=== PATIENT | female | born 1945 | race Caucasian/White ===

== ENCOUNTER 2017-10-04 16:57 | Inpatient (IN) | payer MEDICARE ==
[2017-10-04] MEDS ORDERED: Acetaminophen 1,000 MG in Premix Bag 1 BAG IVPB ONE (18:00)
[2017-10-04] MEDS ORDERED: Sodium Chloride 0.9% 1,000 ML IV SCH ×2 (18:00→22:00)
[2017-10-04 18:17] LABS: #Eosinphils 0.3 thou/uL (0.0-0.7); #Lymphocytes 2.5 thou/uL (1.20-3.40); #Monocytes 0.8 thou/uL (0.11-0.59); #Neutrophils 5.2 thou/uL (1.40-6.50); %Basophils 0.4 % (0.0-1.0); %Eosinophils 2.9 % (0.0-10.0); %Lymphocytes 28.5 % (21.0-51.0); %Monocytes 8.6 % (0.0-10.0); %Neutrophils 59.6 % (42.0-75.0); Hemoglobin 13.1 g/dL (12.0-16.0); Mean Corpuscular HGB CONC 33.2 g/dL (32.0-36.0); Mean Corpuscular Hemoglobin 30.5 pg (27.0-31.0); Mean Corpuscular Volume 91.9 fL (78.0-98.0); Mean Platelet Volume 7.7 fL (7.4-10.4); Platelet Count 210 thou/uL (130-400); RBC Distribution Width 13.3 % (11.5-14.5); Red Blood Cell (RBC) Count 4.29 mill/uL (4.20-5.40); White Blood Cell (WBC) Count 8.7 thou/uL (4.8-10.8)
[2017-10-04 18:31] LABS: Bilirubin Negative (Negative); Blood, Urine Small (Negative); Clarity TURBID (Clear); Glucose, Urine (Dipstick) Negative (Negative); Leukocyte Large (Negative); Nitrite Positive (Negative); Protein, Urine (Dipstick) 100 mg/dL (Neg-Trace); Specific Gravity, Urine 1.022 (1.002-1.036); pH, Urine 8.5 (5.0-9.0)
[2017-10-04 18:35] LABS: Bacteria/HPF 4+ HPF (None Seen); Hyaline Casts/LPF 7-10 HYALINE CAST LPF (0-3 Hyaline); Pathc Cast-AUWi Flag 0.33 (0-2.49); RBC/HPF GREATER THAN 50-TNTC HPF (0-3); Squamous Epithelial 0-3 HPF (0-3)
[2017-10-04 18:44] LABS: ALT (SGPT) 40 U/L (8-55); AST (SGOT) 22 U/L (5-34); Albumin 3.6 g/dL (3.4-4.8); Alkaline Phosphatase 87 U/L (40-150); Anion Gap 13 mmol/L (10-20); BUN (Urea Nitrogen) 24 mg/dL (9.8-20.1); Bilirubin, Total 0.4 mg/dL (0.2-1.2); Calc. Creatinine Clearance 0 mL/min (70-130); Calcium 8.9 mg/dL (7.8-10.44); Carbon Dioxide 23 mmol/L (23-31); Chloride 118 mmol/L (98-107); Estimated GFR-MDRD Greater than 90; Glucose 125 mg/dL (83-110); Potassium 3.5 mmol/L (3.5-5.1); Protein, Total 6.6 g/dL (6.0-8.3); Sodium 150 mmol/L (136-145)
[2017-10-04] MEDS ORDERED: cefTRIAXone\\ROCEPHIN 1 GM VIAL ONE (19:25)
[2017-10-04] MEDS ORDERED: cefTRIAXone\\ROCEPHIN 1 GM in Sodium Chloride 0.9% 100 ML IVPB SCH (22:00)
[2017-10-04] MEDS ORDERED: Senokot 8.6 MG TAB PO PRN (22:37)
[2017-10-04] MEDS ORDERED: Bisacodyl 5 MG TAB PO PRN (22:37)
[2017-10-04] MEDS ORDERED: Ondansetron HCl/PF 4 MG/2 ML Vial IVP PRN (22:37)
[2017-10-04] MEDS ORDERED: Acetaminophen 650 MG Suppository PR PRN (22:37)
[2017-10-05] MEDS: Sodium Chloride 0.9% 1,000 ML IV SCH ×2 (02:35→03:00)
[2017-10-05 02:52] VITALS: BMI 22.9
[2017-10-05 04:44] LABS: Anion Gap 17 mmol/L (10-20); BUN (Urea Nitrogen) 21 mg/dL (9.8-20.1); Calc. Creatinine Clearance 92 mL/min (70-130); Calcium 8.7 mg/dL (7.8-10.44); Carbon Dioxide 21 mmol/L (23-31); Chloride 118 mmol/L (98-107); Estimated GFR-MDRD Greater than 90; Glucose 108 mg/dL (83-110); Potassium 3.9 mmol/L (3.5-5.1); Sodium 152 mmol/L (136-145)
[2017-10-05 05:46] LABS: #Basophils 0.1 thou/uL (0.0-0.2); #Eosinphils 0.3 thou/uL (0.0-0.7); #Lymphocytes 2.5 thou/uL (1.20-3.40); #Monocytes 0.8 thou/uL (0.11-0.59); #Neutrophils 5.3 thou/uL (1.40-6.50); %Eosinophils 3.2 % (0.0-10.0); %Lymphocytes 27.8 % (21.0-51.0); %Monocytes 9.4 % (0.0-10.0); %Neutrophils 58.5 % (42.0-75.0); Hemoglobin 13.9 g/dL (12.0-16.0); Mean Corpuscular HGB CONC 31.9 g/dL (32.0-36.0); Mean Corpuscular Hemoglobin 29.9 pg (27.0-31.0); Mean Corpuscular Volume 93.5 fL (78.0-98.0); Mean Platelet Volume 9.2 fL (7.4-10.4); PLT Morphology Comment Appears Decreased; Platelet Count 114 thou/uL (130-400); RBC Distribution Width 13.2 % (11.5-14.5); RBC Morphology Normal; Red Blood Cell (RBC) Count 4.67 mill/uL (4.20-5.40)
[2017-10-05] MEDS: Enoxaparin Sodium 30 MG/0.3 ML SYRINGE SC SCH (08:33)
[2017-10-05] MEDS: Famotidine/PF 20 mg/2ml Vial SLOW IVP SCH ×2 (08:33→20:46)
[2017-10-05] MEDS: Docusate 100 MG CAP PO SCH ×2 (08:34→20:46)
--- NOTE | 2017-10-05 11:47 | PDOC.EVN ---
Event Note - Event Note Event Note: h&p [id number]
--- NOTE | 2017-10-05 12:47 | HP ---
CHIEF COMPLAINT: Urinary tract infection with dehydration. HISTORY OF PRESENT ILLNESS: This is a 72-year-old female with extensive history including dementia, bladder dysfunction, recurrent urinary tract infection, multiple sclerosis, type 2 diabetes who presents after being found to have a significant urinary tract infection while at her nursing facility today earlier on the day of admission. Unfortunately, the patient has a baseline mental status which she is nonverbal, but does occasionally vocalize and is unable to provide a history. This history is provided by care providers both from the nursing facility documented in the ER chart. REVIEW OF SYSTEMS: Unable to obtain secondary to the patient's dementia. PAST MEDICAL HISTORY: As per above includes, 1. Dementia. 2. Neurogenic bladder. 3. Multiple sclerosis. 4. Hypertension. 5. Type 2 diabetes. 6. Gastroesophageal reflux disease. 7. Anxiety and depression. 8. Status post ankle surgery. 9. Status post tonsillectomy 10. Status post vein stripping, bilateral lower extremities. HOME MEDICATIONS: Buspirone 10 mg p.o. b.i.d., Lexapro 20 mg p.o. at bedtime, Colace 200 mg p.o. b.i.d., Xanax 0.5 mg p.o. q.6 hours p.r.n., Dayhoit 10/325 one tab p.o. b.i.d., aspirin 81 mg p.o. daily, Cozaar 50 mg p.o. daily, Remeron 15 mg p.o. at bedtime, and Protonix 40 mg p.o. daily. ALLERGIES: Include LEVAQUIN, and SULFA ANTIBIOTICS, without a description in severity. FAMILY HISTORY: Unable to obtain from the patient, but appears from prior records that her father had bladder cancer. SOCIAL HISTORY: The patient is a resident at [facility]. She has prior paperwork indicates that she is a DO NOT RESUSCITATE and this was confirmed by nursing with the patient's , but not confirmed with myself. The patient' s is also listed as a medical power of tax attorney and multiple copies of paperwork. This has been consistent with a DNR status during prior hospitalizations. PHYSICAL EXAMINATION: GENERAL: The patient is awake, does not appear to be in any apparent acute distress. HEENT: Normocephalic, atraumatic. Equal ocular motions are intact, dry mucous membranes. CARDIOVASCULAR: S1, S2. No murmurs, rubs or gallops. Pulses 2+ in bilateral upper extremities. RESPIRATORY: Reasonable air movement. The patient is not particularly participatory with an exam, unable to assess for inspiration, but otherwise no gross wheezes, rales or rhonchi. GASTROINTESTINAL: Positive bowel sounds. Soft. EXTREMITIES: Significant for contractures throughout and muscle wasting. LABORATORY DATA: WBC 8.7, hemoglobin 13.1, hematocrit 39.5, platelets 210. Sodium 150, potassium 3.5, chloride 118, bicarbonate 23, BUN 24, creatinine 0.58 , glucose 125, lactic acid 1.6, calcium 8.9, total bilirubin 0.4, AST 22, ALT 40 , alkaline phosphatase 87, total protein 6.6, albumin 3.6. UA significant for 100 protein, small blood, positive nitrites, large leukoesterase RBC greater than 50, WBC greater than 50, bacteria 4+, hyaline casts 7-10. ASSESSMENT AND PLAN: A 72-year-old female who presents with urinary tract infection and dehydration. 1. Urinary tract infection. We will place the patient on empiric antibiotics and closely monitor. This could be the cause of the patient's presentation. 2. Concern for dehydration. Continue with IV fluids. The patient has been receiving 200 mL an hour in the emergency department. We will decrease this to 100 mL an hour for the time being. We will closely monitor intake and output along with vital signs. 3. Dementia, appears to be stable at baseline. We will also try to obtain prior records to see if this is truly actual baseline, though. 4. Hypertension, stable. 5. Anxiety and depression, stable. 6. Activity: As tolerated. 7. Deep venous thrombosis prophylaxis with enoxaparin. MTDD
--- NOTE | 2017-10-05 17:26 | PDOC.PN ---
- Subjective Encounter Start Date: 10/05/17 Encounter Start Time: 12:30 Subjective: pt up in bed does not appear in any distress - Objective Resuscitation Status: Resuscitation Status DNR:Do Not Resuscitate Vital Signs & Weight: Vital Signs (12 hours) Temp Pulse Resp BP Pulse Ox 10/05/17 16:48 98.5 F 82 20 158/66 H 92 L 10/05/17 11:14 98.9 F 74 18 132/77 95 10/05/17 08:00 98.4 F 67 16 96 10/05/17 07:03 98.4 F 67 16 135/67 96 Weight Weight 146 lb 11.2 oz Result Diagrams: 10/05/17 04:17 10/05/17 04:17 Additional Labs: Accuchecks 10/05/17 10/05/17 10/05/17 16:18 11:14 04:40 POC Glucose 103 110 96 Phys Exam - Physical Examination Neck: no nodes, no JVD, supple, full ROM Respiratory: no wheezing, no rales, no rhonchi, wheezing present, clear to auscultation bilateral Cardiovascular: RRR, no significant murmur, no rub, gallop, irregular Gastrointestinal: soft, non-tender, no distention, positive bowel sounds Dx/Plan (1) Metabolic encephalopathy Code(s): G93.41 - METABOLIC ENCEPHALOPATHY Status: Acute (2) UTI (urinary tract infection) Status: Acute (3) Diabetes mellitus type 2 in obese Code(s): E11.9 - TYPE 2 DIABETES MELLITUS WITHOUT COMPLICATIONS; E66.9 - OBESITY , UNSPECIFIED Status: Acute - Plan will continue current abx, her cx indicated proteus mirabilis * . Review of Systems - Review of Systems Respiratory: negative: Cough, Dry, Shortness of Breath, Hemoptysis, SOB with Excertion, Pleuritic Pain, Sputum, Wheezing Cardiovascular: negative: chest pain, palpitations, orthopnea, paroxysmal nocturnal dyspnea, edema, light headedness, other Gastrointestinal: negative: Nausea, Vomiting, Abdominal Pain, Diarrhea, Constipation, Melena, Hematochezia, Other - Medications/Allergies Allergies/Adverse Reactions: Allergies Allergy/AdvReac Type Severity Reaction Status Date / Time levofloxacin [From Levaquin] Allergy Verified 10/05/17 02:56 Sulfa (Sulfonamide Allergy Verified 10/05/17 02:56 Antibiotics) Medications: Current Medications Acetaminophen (Tylenol) 650 mg IA Q4H PRN PRN Reason: Headache/Fever or Pain Bisacodyl (Dulcolax) 10 mg PO DAILYPRN PRN PRN Reason: Constipation Docusate Sodium (Colace) 100 mg PO BID [facility] Last Admin: 10/05/17 08:34 Dose: 100 mg Enoxaparin Sodium (Lovenox) 30 mg SC 0900 [facility] Last Admin: 10/05/17 08:33 Dose: 30 mg Famotidine (Pepcid) 20 mg SLOW IVP Q12HR [facility] Last Admin: 10/05/17 08:33 Dose: 20 mg Ceftriaxone Sodium 2 gm/ (Sodium Chloride) 100 mls @ 200 mls/hr IVPB 2000 [facility] Ondansetron HCl (Zofran) 4 mg IVP Q6H PRN PRN Reason: Nausea/Vomiting Senna (Senokot) 2 tab PO HSPRN PRN PRN Reason: Constipation
[2017-10-05] MEDS: cefTRIAXone\\ROCEPHIN 2 GM in Sodium Chloride 0.9% 100 ML IVPB SCH (20:46)
[2017-10-06 04:42] LABS: #Basophils 0.1 thou/uL (0.0-0.2); #Eosinphils 0.1 thou/uL (0.0-0.7); #Lymphocytes 2.2 thou/uL (1.20-3.40); #Monocytes 0.5 thou/uL (0.11-0.59); #Neutrophils 4.8 thou/uL (1.40-6.50); %Basophils 0.8 % (0.0-1.0); %Eosinophils 1.8 % (0.0-10.0); %Lymphocytes 28.7 % (21.0-51.0); %Monocytes 6.6 % (0.0-10.0); %Neutrophils 62.1 % (42.0-75.0); Hemoglobin 11.8 g/dL (12.0-16.0); Mean Corpuscular HGB CONC 33.5 g/dL (32.0-36.0); Mean Corpuscular Hemoglobin 30.3 pg (27.0-31.0); Mean Corpuscular Volume 90.4 fL (78.0-98.0); Mean Platelet Volume 7.8 fL (7.4-10.4); Platelet Count 169 thou/uL (130-400); RBC Distribution Width 12.7 % (11.5-14.5); Red Blood Cell (RBC) Count 3.89 mill/uL (4.20-5.40); White Blood Cell (WBC) Count 7.8 thou/uL (4.8-10.8)
[2017-10-06 05:04] LABS: Anion Gap 12 mmol/L (10-20); BUN (Urea Nitrogen) 9 mg/dL (9.8-20.1); Calc. Creatinine Clearance 112 mL/min (70-130); Calcium 8.7 mg/dL (7.8-10.44); Carbon Dioxide 23 mmol/L (23-31); Chloride 115 mmol/L (98-107); Estimated GFR-MDRD Greater than 90; Glucose 105 mg/dL (83-110); Sodium 147 mmol/L (136-145)
[2017-10-06 05:07] LABS: Potassium 2.7 mmol/L (3.5-5.1)
[2017-10-06] MEDS: Potassium Chloride 20 MEQ TAB PO SCH ×3 (05:47→13:40)
[2017-10-06] MEDS: Docusate 100 MG CAP PO SCH ×3 (08:15→20:28)
[2017-10-06] MEDS: Enoxaparin Sodium 30 MG/0.3 ML SYRINGE SC SCH (08:16)
[2017-10-06] MEDS: Famotidine/PF 20 mg/2ml Vial SLOW IVP SCH ×2 (08:16→20:28)
[2017-10-06] MEDS ORDERED: HYDROcodone/Acetaminophen 5/325 mg Tablet PO PRN (12:36)
[2017-10-06] MEDS ORDERED: Polyethylene Glycol 3350 17 GM Packet PO PRN (12:36)
[2017-10-06] MEDS ORDERED: Sodium Chloride 0.9% 1,000 ML IV SCH (12:45)
[2017-10-06] MEDS: ALPRAZolam 0.25 MG TAB PO SCH ×2 (15:38→20:28)
--- NOTE | 2017-10-06 18:49 | PDOC.PN ---
- Subjective Encounter Start Date: 10/06/17 Encounter Start Time: 11:30 Subjective: pt up in bed awake - Objective Resuscitation Status: Resuscitation Status DNR:Do Not Resuscitate Vital Signs & Weight: Vital Signs (12 hours) Temp Pulse Resp BP Pulse Ox 10/06/17 08:00 98.2 F 73 18 92 L 10/06/17 07:39 98.2 F 73 18 136/78 92 L Weight Weight 146 lb 11.2 oz I&O: 10/05/17 10/06/17 10/07/17 06:59 06:59 06:59 Intake Total 1000 Balance 1000 Result Diagrams: 10/06/17 04:10 10/06/17 04:10 Additional Labs: Accuchecks 10/06/17 10/06/17 10/06/17 16:09 13:00 05:30 POC Glucose 118 H 85 96 10/05/17 20:31 POC Glucose 107 Phys Exam - Physical Examination Neck: no nodes, no JVD, supple, full ROM Respiratory: no wheezing, no rales, no rhonchi, wheezing present, clear to auscultation bilateral Cardiovascular: RRR, no significant murmur, no rub, gallop, irregular Gastrointestinal: soft, non-tender, no distention, positive bowel sounds Musculoskeletal: edema present mild to lower foot Dx/Plan (1) Metabolic encephalopathy Code(s): G93.41 - METABOLIC ENCEPHALOPATHY Status: Acute (2) UTI (urinary tract infection) Status: Acute (3) Diabetes mellitus type 2 in obese Code(s): E11.9 - TYPE 2 DIABETES MELLITUS WITHOUT COMPLICATIONS; E66.9 - OBESITY , UNSPECIFIED Status: Acute - Plan will continue abx -: can change to oral and possible discharge in am -: will replace K and recheck potassium -: pt not drinking due to thicken liquid. will given one liter of fluid * . Review of Systems - Review of Systems Other: unable to perform - Medications/Allergies Allergies/Adverse Reactions: Allergies Allergy/AdvReac Type Severity Reaction Status Date / Time levofloxacin [From Levaquin] Allergy Verified 10/05/17 02:56 Sulfa (Sulfonamide Allergy Verified 10/05/17 02:56 Antibiotics) Medications: Current Medications Acetaminophen (Tylenol) 650 mg SC Q4H PRN PRN Reason: Headache/Fever or Pain Hydrocodone Bitart/Acetaminophen (Holly 5/325) 1 tab PO ASDIR PRN PRN Reason: Pain Alprazolam (Xanax) 0.5 mg PO TID [facility] Last Admin: 10/06/17 15:38 Dose: 0.5 mg Aspirin (Ecotrin) 81 mg PO DAILY [facility] Bisacodyl (Dulcolax) 10 mg PO DAILYPRN PRN PRN Reason: Constipation Buspirone HCl (Buspar) 10 mg PO BID [facility] Docusate Sodium (Colace) 100 mg PO BID [facility] Last Admin: 10/06/17 08:15 Dose: 100 mg Docusate Sodium (Colace) 100 mg PO BID [facility] Enoxaparin Sodium (Lovenox) 30 mg SC 0900 [facility] Last Admin: 10/06/17 08:16 Dose: 30 mg Escitalopram Oxalate (Lexapro) 10 mg PO DAILY [facility] Famotidine (Pepcid) 20 mg SLOW IVP Q12HR [facility] Last Admin: 10/06/17 08:16 Dose: 20 mg Ceftriaxone Sodium 2 gm/ (Sodium Chloride) 100 mls @ 200 mls/hr IVPB 2000 [facility] Last Admin: 10/05/17 20:46 Dose: 100 mls Sodium Chloride (Normal Saline 0.9%) 1,000 mls @ 70 mls/hr IV .[id number] [facility] Stop: 10/07/17 03:02 Last Admin: 10/06/17 13:44 Dose: 1,000 mls Ondansetron HCl (Zofran) 4 mg IVP Q6H PRN PRN Reason: Nausea/Vomiting Pantoprazole Sodium (Protonix) 40 mg PO DAILY [facility] Polyethylene Glycol (Miralax) 17 gm PO DAILY PRN PRN Reason: Constipation Senna (Senokot) 2 tab PO HSPRN PRN PRN Reason: Constipation Sodium Chloride (Flush - Normal Saline) 10 ml IVF Q12HR [facility] Sodium Chloride (Flush - Normal Saline) 10 ml IVF PRN PRN PRN Reason: Saline Flush
[2017-10-06 19:42] LABS: Anion Gap 13 mmol/L (10-20); BUN (Urea Nitrogen) 9 mg/dL (9.8-20.1); Calc. Creatinine Clearance 96 mL/min (70-130); Calcium 9.5 mg/dL (7.8-10.44); Carbon Dioxide 23 mmol/L (23-31); Chloride 117 mmol/L (98-107); Estimated GFR-MDRD Greater than 90; Glucose 121 mg/dL (83-110); Potassium 4.1 mmol/L (3.5-5.1); Sodium 149 mmol/L (136-145)
[2017-10-06] MEDS: cefTRIAXone\\ROCEPHIN 2 GM in Sodium Chloride 0.9% 100 ML IVPB SCH (20:27)
[2017-10-06] MEDS: busPIRone HCl 10 MG TAB PO SCH (20:28)
[2017-10-07 04:49] LABS: #Basophils 0.1 thou/uL (0.0-0.2); #Eosinphils 0.2 thou/uL (0.0-0.7); #Lymphocytes 2.5 thou/uL (1.20-3.40); #Monocytes 0.7 thou/uL (0.11-0.59); #Neutrophils 4.7 thou/uL (1.40-6.50); %Basophils 0.9 % (0.0-1.0); %Eosinophils 1.9 % (0.0-10.0); %Lymphocytes 30.8 % (21.0-51.0); %Monocytes 8.1 % (0.0-10.0); %Neutrophils 58.3 % (42.0-75.0); Hemoglobin 13.5 g/dL (12.0-16.0); Mean Corpuscular HGB CONC 32.4 g/dL (32.0-36.0); Mean Corpuscular Hemoglobin 29.9 pg (27.0-31.0); Mean Corpuscular Volume 92.3 fL (78.0-98.0); Mean Platelet Volume 7.9 fL (7.4-10.4); Platelet Count 156 thou/uL (130-400); RBC Distribution Width 13.2 % (11.5-14.5); Red Blood Cell (RBC) Count 4.52 mill/uL (4.20-5.40); White Blood Cell (WBC) Count 8.1 thou/uL (4.8-10.8)
[2017-10-07 05:14] LABS: Anion Gap 14 mmol/L (10-20); BUN (Urea Nitrogen) 7 mg/dL (9.8-20.1); Calc. Creatinine Clearance 103 mL/min (70-130); Carbon Dioxide 23 mmol/L (23-31); Chloride 116 mmol/L (98-107); Estimated GFR-MDRD Greater than 90; Glucose 94 mg/dL (83-110); Potassium 3.7 mmol/L (3.5-5.1); Sodium 149 mmol/L (136-145)
[2017-10-07] MEDS: Escitalopram Oxalate 20 mg Tablet PO SCH (07:57)
[2017-10-07] MEDS: busPIRone HCl 10 MG TAB PO SCH ×2 (07:58→20:31)
[2017-10-07] MEDS: Docusate 100 MG CAP PO SCH ×3 (07:59→20:32)
[2017-10-07] MEDS: ALPRAZolam 0.25 MG TAB PO SCH ×3 (07:59→20:31)
[2017-10-07] MEDS: Aspirin 81 mg Enteric Coated Tablet PO SCH (07:59)
[2017-10-07] MEDS: Enoxaparin Sodium 30 MG/0.3 ML SYRINGE SC SCH (08:01)
[2017-10-07] MEDS ORDERED: Dextrose 5% in Water 1,000 ML IV SCH (09:30)
[2017-10-07] MEDS: Famotidine/PF 20 mg/2ml Vial SLOW IVP SCH (11:01)
--- NOTE | 2017-10-07 15:58 | RAD ---
AP VIEW CHEST: Date: 10/07/17 HISTORY: Shortness of breath. FINDINGS: Comparison made to previous exam from 10/04/17. AP view of chest obtained and demonstrates an area of continued density in the left lung base compati ble with areas of left lower lobe atelectasis or pneumonia, unchanged since the previous comparison e xam. There is interval development of a patchy area of density in the right lung base compatible with a ri ght lower lobe area of atelectasis or pneumonia. No other acute abnormality seen. IMPRESSION: Bibasilar areas of opacities, the right lung base is new. These may represent areas of bibasilar atel ectasis or pneumonia versus left lung base scar. POS: ORINH
--- NOTE | 2017-10-07 16:13 | PDOC.PN ---
- Subjective Encounter Start Date: 10/07/17 Encounter Start Time: 10:30 Subjective: pt up in bed does not appear in any distress - Objective Resuscitation Status: Resuscitation Status DNR:Do Not Resuscitate Vital Signs & Weight: Vital Signs (12 hours) Temp Pulse Resp BP Pulse Ox 10/07/17 08:00 97.6 F 73 16 90 L 10/07/17 07:47 97.6 F 73 16 139/83 90 L Weight Weight 146 lb 11.2 oz I&O: 10/06/17 10/07/17 10/08/17 06:59 06:59 06:59 Intake Total 1000 Balance 1000 Result Diagrams: 10/07/17 03:58 10/07/17 03:58 Additional Labs: Accuchecks 10/07/17 10/07/17 10/06/17 11:22 04:12 19:37 POC Glucose 97 99 122 H 10/06/17 16:09 POC Glucose 118 H Phys Exam - Physical Examination Neck: no nodes, no JVD, supple, full ROM mild rhonchi to upper chest area Cardiovascular: RRR, no significant murmur, no rub, gallop, irregular Gastrointestinal: soft, non-tender, no distention, positive bowel sounds Musculoskeletal: edema present to lower ext Neurological: non-focal, normal sensation, moves all 4 limbs Dx/Plan (1) Metabolic encephalopathy Code(s): G93.41 - METABOLIC ENCEPHALOPATHY Status: Acute (2) UTI (urinary tract infection) Status: Acute (3) Diabetes mellitus type 2 in obese Code(s): E11.9 - TYPE 2 DIABETES MELLITUS WITHOUT COMPLICATIONS; E66.9 - OBESITY , UNSPECIFIED Status: Acute (4) Aspiration pneumonia Code(s): J69.0 - PNEUMONITIS DUE TO INHALATION OF FOOD AND VOMIT Status: Acute (5) Hypernatremia Code(s): E87.0 - HYPEROSMOLALITY AND HYPERNATREMIA Status: Acute - Plan pt has some rhonchi today. cxr indicates possible pna -: will change abx to unasyn. speech updated me that pt is not tolerating -: her recommeded diet and wanted to get a MBS. pt not on any MS meds per husb -: I did speak with and updated him. According to him she did not want -: a peg tube. will continue free water for hypernatremia * . Review of Systems - Review of Systems Other: unable to obtain - Medications/Allergies Allergies/Adverse Reactions: Allergies Allergy/AdvReac Type Severity Reaction Status Date / Time levofloxacin [From Levaquin] Allergy Verified 10/05/17 02:56 Sulfa (Sulfonamide Allergy Verified 10/05/17 02:56 Antibiotics) Medications: Current Medications Acetaminophen (Tylenol) 650 mg GA Q4H PRN PRN Reason: Headache/Fever or Pain Hydrocodone Bitart/Acetaminophen ([place] 5/325) 1 tab PO ASDIR PRN PRN Reason: Pain Alprazolam (Xanax) 0.5 mg PO TID [facility] Last Admin: 10/07/17 07:59 Dose: 0.5 mg Aspirin (Ecotrin) 81 mg PO DAILY [facility] Last Admin: 10/07/17 07:59 Dose: 81 mg Bisacodyl (Dulcolax) 10 mg PO DAILYPRN PRN PRN Reason: Constipation Buspirone HCl (Buspar) 10 mg PO BID [facility] Last Admin: 10/07/17 07:58 Dose: 10 mg Docusate Sodium (Colace) 100 mg PO BID [facility] Last Admin: 10/07/17 08:01 Dose: Not Given Enoxaparin Sodium (Lovenox) 30 mg SC 0900 [facility] Last Admin: 10/07/17 08:01 Dose: 30 mg Escitalopram Oxalate (Lexapro) 10 mg PO DAILY [facility] Last Admin: 10/07/17 07:57 Dose: 10 mg Famotidine (Pepcid) 20 mg SLOW IVP Q12HR [facility] Last Admin: 10/07/17 11:01 Dose: Not Given Dextrose/Water (D5w) 1,000 mls @ 50 mls/hr IV .Q20H [facility] Last Admin: 10/07/17 11:23 Dose: 1,000 mls Ampicillin Sodium/Sulbactam (Sodium 1.5 gm/ Sodium Chloride) 100 mls @ 200 mls/ hr IVPB Q6H [facility] Ipratropium Sumpter (Atrovent) 2.5 ml NEB [id number] [facility]NA[facility] Ipratropium Sumpter (Atrovent) 2.5 ml NEB NOW [facility] Ondansetron HCl (Zofran) 4 mg IVP Q6H PRN PRN Reason: Nausea/Vomiting Pantoprazole Sodium (Protonix) 40 mg PO DAILY [facility] Last Admin: 10/07/17 07:59 Dose: 40 mg Polyethylene Glycol (Miralax) 17 gm PO DAILY PRN PRN Reason: Constipation Senna (Senokot) 2 tab PO HSPRN PRN PRN Reason: Constipation Sodium Chloride (Flush - Normal Saline) 10 ml IVF Q12HR [facility] Last Admin: 10/07/17 08:04 Dose: 10 ml Sodium Chloride (Flush - Normal Saline) 10 ml IVF PRN PRN PRN Reason: Saline Flush
[2017-10-07] MEDS ORDERED: Ipratropium Bromide 2.5 ml Neb NEB SCH (16:15)
[2017-10-07] MEDS: Ampicillin/Sulbactam 1.5 GM in Sodium Chloride 0.9% 100 ML IVPB SCH (17:51)
[2017-10-07] MEDS: Ipratropium Bromide 2.5 ml Neb NEB SCH ×2 (18:21→22:34)
[2017-10-07 19:25] LABS: Anion Gap 15 mmol/L (10-20); BUN (Urea Nitrogen) 5 mg/dL (9.8-20.1); Calc. Creatinine Clearance 107 mL/min (70-130); Calcium 8.9 mg/dL (7.8-10.44); Carbon Dioxide 22 mmol/L (23-31); Chloride 110 mmol/L (98-107); Estimated GFR-MDRD Greater than 90; Glucose 95 mg/dL (83-110); Potassium 3.9 mmol/L (3.5-5.1); Sodium 143 mmol/L (136-145)
[2017-10-07] MEDS ORDERED: Furosemide 20 MG/2 ML VIAL SLOW IVP SCH (22:00)
[2017-10-07] MEDS: Dextrose 5 % And 0.9 % NaCl 500 ML IV SCH (22:08)
[2017-10-08] MEDS: Ipratropium Bromide 2.5 ml Neb NEB SCH ×6 (02:09→23:28)
[2017-10-08] MEDS: Ampicillin/Sulbactam 1.5 GM in Sodium Chloride 0.9% 100 ML IVPB SCH ×4 (05:04→17:34)
[2017-10-08 05:29] LABS: #Eosinphils 0.1 thou/uL (0.0-0.7); #Lymphocytes 1.8 thou/uL (1.20-3.40); #Monocytes 0.8 thou/uL (0.11-0.59); #Neutrophils 7.9 thou/uL (1.40-6.50); %Basophils 0.3 % (0.0-1.0); %Eosinophils 1.3 % (0.0-10.0); %Lymphocytes 17.2 % (21.0-51.0); %Monocytes 7.3 % (0.0-10.0); Hemoglobin 13.1 g/dL (12.0-16.0); Mean Corpuscular Hemoglobin 29.7 pg (27.0-31.0); Mean Platelet Volume 7.8 fL (7.4-10.4); Platelet Count 176 thou/uL (130-400); Red Blood Cell (RBC) Count 4.43 mill/uL (4.20-5.40); White Blood Cell (WBC) Count 10.6 thou/uL (4.8-10.8)
[2017-10-08 05:51] LABS: Anion Gap 13 mmol/L (10-20); BUN (Urea Nitrogen) 6 mg/dL (9.8-20.1); Calc. Creatinine Clearance 107 mL/min (70-130); Calcium 9.1 mg/dL (7.8-10.44); Carbon Dioxide 26 mmol/L (23-31); Chloride 104 mmol/L (98-107); Estimated GFR-MDRD Greater than 90; Glucose 117 mg/dL (83-110); Potassium 3.3 mmol/L (3.5-5.1); Sodium 140 mmol/L (136-145)
[2017-10-08] MEDS: ALPRAZolam 0.25 MG TAB PO SCH ×3 (12:31→20:13)
[2017-10-08] MEDS: Aspirin 81 mg Enteric Coated Tablet PO SCH (12:31)
[2017-10-08] MEDS: busPIRone HCl 10 MG TAB PO SCH ×2 (12:32→20:13)
[2017-10-08] MEDS: Docusate 100 MG CAP PO SCH ×2 (12:32→20:13)
[2017-10-08] MEDS: Enoxaparin Sodium 30 MG/0.3 ML SYRINGE SC SCH (12:33)
[2017-10-08] MEDS: Escitalopram Oxalate 20 mg Tablet PO SCH (12:33)
--- NOTE | 2017-10-08 12:53 | RAD ---
NODIFIED BARIUM SWALLOW WITH SPEECH THERAPIST: HISTORY: A 72-year-old female with a history of oropharyngeal phase dysphagia with feeding difficulty with con cern for aspiration. FINDINGS: The patient was given multiple consistencies in the seated lateral position. There was marked penetr ation with probable minimal aspiration of thin liquids as well as penetration with thicker liquids in cluding 1 episode of paty aspiration with thick liquid. IMPRESSION: Extensive penetration including aspiration with multiple consistencies. Please see speech therapy report for additional findings and recommendations. POS: [place]
[2017-10-08] MEDS: Dextrose 5 % And 0.9 % NaCl 500 ML IV SCH (15:26)
--- NOTE | 2017-10-08 16:06 | PDOC.PN ---
- Subjective Encounter Start Date: 10/08/17 Encounter Start Time: 15:00 -: non-verbal, old records requested/rev Pt seen and examined, chart reviewed in its entirety, this is my first visit with this patient No F/C, no N/V/d/c, no CP or SOB, no cough, no GI bleeding ROS not obtainable, pt nonverbal, at the bedside. FDiscussed EOL issues , does not think pt would want a feeding tube, we discussed hospice, and he is agreeable to discuss - Objective Resuscitation Status: Resuscitation Status DNR:Do Not Resuscitate MAR Reviewed: Yes Vital Signs & Weight: Vital Signs (12 hours) Temp Pulse Resp BP Pulse Ox 10/08/17 10:38 96 28 H 10/08/17 08:00 97.9 F 82 20 93 L 10/08/17 07:52 97.9 F 82 20 138/77 93 L 10/08/17 07:01 92 L 10/08/17 06:51 82 20 92 L Weight Weight 146 lb 11.2 oz I&O: 10/07/17 10/08/17 10/09/17 06:59 06:59 06:59 Intake Total 533 Balance 533 Result Diagrams: 10/08/17 04:41 10/08/17 04:41 Additional Labs: Accuchecks 10/08/17 10/08/17 10/07/17 12:29 05:03 20:12 POC Glucose 140 H 114 H 99 10/07/17 16:15 POC Glucose 94 Radiology Reviewed by me: Yes EKG Reviewed by me: Yes Phys Exam - Physical Examination Constitutional: NAD HEENT: PERRLA, moist MMs, sclera anicteric, oral pharynx no lesions Neck: no nodes, no JVD, supple, full ROM Respiratory: no wheezing upper airway rattles, RLL dull and has crackles Cardiovascular: RRR, no significant murmur, no rub Gastrointestinal: soft, non-tender, no distention, positive bowel sounds Musculoskeletal: pulses present, edema present Lymphatic: no nodes Skin: no rash, normal turgor, cap refill <2 seconds Dx/Plan (1) Multiple sclerosis Code(s): G35 - MULTIPLE SCLEROSIS Status: Chronic (2) Aspiration pneumonia Code(s): J69.0 - PNEUMONITIS DUE TO INHALATION OF FOOD AND VOMIT Status: Acute Qualifiers: Aspiration pneumonia type: due to gastric secretions Laterality: right Lung location: lower lobe of lung Qualified Code(s): J69.0 - Pneumonitis due to inhalation of food and vomit (3) Hypernatremia Code(s): E87.0 - HYPEROSMOLALITY AND HYPERNATREMIA Status: Resolved (4) Dementia Code(s): F03.90 - UNSPECIFIED DEMENTIA WITHOUT BEHAVIORAL DISTURBANCE Status: Chronic Qualifiers: Dementia type: associated with other underlying disease Dementia behavioral disturbance: without behavioral disturbance Qualified Code(s): F02.80 - Dementia in other diseases classified elsewhere without behavioral disturbance (5) Diabetes mellitus type 2 in obese Code(s): E11.9 - TYPE 2 DIABETES MELLITUS WITHOUT COMPLICATIONS; E66.9 - OBESITY , UNSPECIFIED Status: Chronic (6) Hypertension Code(s): I10 - ESSENTIAL (PRIMARY) HYPERTENSION Status: Chronic Qualifiers: Hypertension type: essential hypertension Qualified Code(s): I10 - Essential (primary) hypertension (7) Metabolic encephalopathy Code(s): G93.41 - METABOLIC ENCEPHALOPATHY Status: Acute (8) UTI (urinary tract infection) Status: Chronic Qualifiers: Urinary tract infection type: acute cystitis Hematuria presence: without hematuria Qualified Code(s): N30.00 - Acute cystitis without hematuria - Plan cont current plan of care, plan discussed w/ family, continue antibiotics, social welfare administrator * .
[2017-10-09] MEDS: Ampicillin/Sulbactam 1.5 GM in Sodium Chloride 0.9% 100 ML IVPB SCH ×4 (00:15→18:30)
[2017-10-09] MEDS: Ipratropium Bromide 2.5 ml Neb NEB SCH ×6 (03:27→22:31)
[2017-10-09] MEDS: Dextrose 5 % And 0.9 % NaCl 500 ML IV SCH (06:21)
[2017-10-09] MEDS: busPIRone HCl 10 MG TAB PO SCH ×2 (08:10→19:39)
[2017-10-09] MEDS: ALPRAZolam 0.25 MG TAB PO SCH ×3 (08:10→19:38)
[2017-10-09] MEDS: Aspirin 81 mg Enteric Coated Tablet PO SCH (08:10)
[2017-10-09] MEDS: Docusate 100 MG CAP PO SCH ×2 (08:10→19:39)
[2017-10-09] MEDS: Escitalopram Oxalate 20 mg Tablet PO SCH (08:11)
[2017-10-09] MEDS: Enoxaparin Sodium 30 MG/0.3 ML SYRINGE SC SCH (08:14)
--- NOTE | 2017-10-09 15:11 | PDOC.PN ---
- Subjective Encounter Start Date: 10/09/17 Encounter Start Time: 14:00 -: non-verbal - Objective Resuscitation Status: Resuscitation Status DNR:Do Not Resuscitate MAR Reviewed: Yes Vital Signs & Weight: Vital Signs (12 hours) Temp Pulse Resp BP Pulse Ox 10/09/17 14:09 82 16 96 10/09/17 10:25 75 20 98 10/09/17 08:10 94 L 10/09/17 08:00 98.3 F 93 20 94 L 10/09/17 07:55 98.3 F 93 20 128/68 92 L 10/09/17 06:49 93 L 10/09/17 06:14 77 16 93 L 10/09/17 03:27 92 L Weight Weight 146 lb 11.2 oz I&O: 10/08/17 10/09/17 10/10/17 06:59 06:59 06:59 Intake Total 533 400 Balance 533 400 Result Diagrams: 10/08/17 04:41 10/08/17 04:41 Additional Labs: Accuchecks 10/09/17 10/09/17 10/08/17 11:33 04:25 19:19 POC Glucose 96 120 H 111 H 10/08/17 16:20 POC Glucose 115 H Phys Exam - Physical Examination Constitutional: NAD HEENT: PERRLA, moist MMs, sclera anicteric, oral pharynx no lesions Neck: no nodes, no JVD, supple Respiratory: no wheezing upper airway rattling Cardiovascular: RRR, no rub Gastrointestinal: soft, non-tender, positive bowel sounds Musculoskeletal: edema present Lymphatic: no nodes Skin: no rash, normal turgor, cap refill <2 seconds Dx/Plan (1) Multiple sclerosis Code(s): G35 - MULTIPLE SCLEROSIS Status: Chronic Comment: hospice eval pending, D/c to [facility] when arranged (2) Aspiration pneumonia Code(s): J69.0 - PNEUMONITIS DUE TO INHALATION OF FOOD AND VOMIT Status: Acute Qualifiers: Aspiration pneumonia type: due to gastric secretions Laterality: right Lung location: lower lobe of lung Qualified Code(s): J69.0 - Pneumonitis due to inhalation of food and vomit Comment: pt NPO, no feeding tube, planning comfort care (3) Hypernatremia Code(s): E87.0 - HYPEROSMOLALITY AND HYPERNATREMIA Status: Resolved (4) Dementia Code(s): F03.90 - UNSPECIFIED DEMENTIA WITHOUT BEHAVIORAL DISTURBANCE Status: Chronic Qualifiers: Dementia type: associated with other underlying disease Dementia behavioral disturbance: without behavioral disturbance Qualified Code(s): F02.80 - Dementia in other diseases classified elsewhere without behavioral disturbance (5) Diabetes mellitus type 2 in obese Code(s): E11.9 - TYPE 2 DIABETES MELLITUS WITHOUT COMPLICATIONS; E66.9 - OBESITY , UNSPECIFIED Status: Chronic (6) Hypertension Code(s): I10 - ESSENTIAL (PRIMARY) HYPERTENSION Status: Chronic Qualifiers: Hypertension type: essential hypertension Qualified Code(s): I10 - Essential (primary) hypertension (7) Metabolic encephalopathy Code(s): G93.41 - METABOLIC ENCEPHALOPATHY Status: Acute (8) UTI (urinary tract infection) Status: Chronic Qualifiers: Urinary tract infection type: acute cystitis Hematuria presence: without hematuria Qualified Code(s): N30.00 - Acute cystitis without hematuria - Plan * .
[2017-10-10] MEDS: Ampicillin/Sulbactam 1.5 GM in Sodium Chloride 0.9% 100 ML IVPB SCH ×3 (00:36→12:09)
[2017-10-10] MEDS: Dextrose 5 % And 0.9 % NaCl 500 ML IV SCH (00:38)
[2017-10-10] MEDS: Ipratropium Bromide 2.5 ml Neb NEB SCH ×3 (02:27→10:53)
[2017-10-10] MEDS: Enoxaparin Sodium 30 MG/0.3 ML SYRINGE SC SCH (08:18)
[2017-10-10] MEDS: Aspirin 81 mg Enteric Coated Tablet PO SCH (08:19)
[2017-10-10] MEDS: busPIRone HCl 10 MG TAB PO SCH (08:19)
[2017-10-10] MEDS: ALPRAZolam 0.25 MG TAB PO SCH (08:19)
[2017-10-10] MEDS: Docusate 100 MG CAP PO SCH (08:19)
[2017-10-10] MEDS: Escitalopram Oxalate 20 mg Tablet PO SCH (08:19)
[2017-10-10 12:32] VITALS: BP 148/78; TEMP 98.5
--- NOTE | 2017-10-10 15:17 | DIS ---
DATE OF ADMISSION: 10/04/2017 DATE OF DISCHARGE: 10/10/2017. PRIMARY CARE PHYSICIAN: Dr. Charmaine Dorantes M.D. DISCHARGE DIAGNOSES: 1. End-stage multiple sclerosis. 2. Aspiration pneumonia. 3. Oropharyngeal dysphagia secondary to multiple sclerosis. 4. Metabolic encephalopathy. 5. Baseline dementia. 6. Diabetes mellitus, type 2. 7. Obesity. 8. Essential hypertension. 9. Hypernatremia. CONSULTATIONS: None. PROCEDURES: None. HISTORY AND PHYSICAL: Ms. Alatorre is a 72-year-old female with known MS, who is a long-term resident at a [facility], who presented to the emergency department initially 10/04/2017 for evaluation of dehydration and possible UTI. She was evaluated in the emergency department and found to have a marva ctive urine with greater than 50 white blood cells, 4+ bacteria, greater than 50 red cells, and posit benjamín nitrites. White blood cell count was normal. She was started on IV fluids, after bolus in the e mergency department, and we were subsequently called for admit. The patient was accepted by the morning babysitter and admitted the following morning by Dr. Dior. Overnight, the patient did well, but still continued to show poor signs of oxygenation otherwise. Sh e was taken to OR by Dr. Rinaldi, who noted the patient was up in bed, did not appear to be in any dis tress. Urine culture growing Proteus mirabilis. By 10/06/2017, patient was again up in bed awake, but still altered. She was changed to oral antibio tics and potassium was replaced. The patient was not drinking due to thickened liquids and so was gi kathleen another liter of fluids. Speech therapy was consulted, and on 10/07, the patient comes with shor tness of breath. Chest x-ray showed bibasilar opacities with a right lung base opacity new, concerni ng for possible aspiration pneumonia. Per Dr. Rinaldi's note, patient was not in any distress, but ewing d saturations of 90% on room air. She was changed to Unasyn for possible aspiration pneumonia and sp eech therapy was consulted for dietary recommendations. On 10/08/2017, the patient underwent modified barium swallow and had aspiration of all consistencies and was not cleared to eat anything. I had a long discussion with the and he was leaning tow [facility] and stated the patient would not have wanted a feeding tube. On 10/09/2017, her selected [facility]. They were consulted and evaluated the pat ient, and on 10/10/2017, the patient was accepted and stable for discharge to [facility] for [facility]. DISCHARGE CONDITION: Guarded. DISPOSITION: The patient is being discharged to [facility] with [facility]. DISCHARGE MEDICATIONS: Home medications continued, to be adjusted by hospice. DISCHARGE DIET: N.p.o. DISCHARGE ACTIVITY: As tolerated. FOLLOWUP APPOINTMENTS: None scheduled.
== END 2017-10-10 14:37 | DRG 689 ==
LOC: ERS 16:57 → T4-B 19:47
PROVIDERS: ADMIT Internal Medicine; ATTEND Internal Medicine
DX: N39.0 Urinary tract infection, site not specified (principal); J69.0 Pneumonitis due to inhalation of food and vomit; G93.41 Metabolic encephalopathy; E87.0 Hyperosmolality and hypernatremia; E86.0 Dehydration; F03.90 Unspecified dementia, unspecified severity, without behavioral disturbance, psychotic disturbance, mood disturbance, and anxiety; N31.9 Neuromuscular dysfunction of bladder, unspecified; G35 Multiple sclerosis; E11.9 Type 2 diabetes mellitus without complications; I10 Essential (primary) hypertension; K21.9 Gastro-esophageal reflux disease without esophagitis; F41.9 Anxiety disorder, unspecified; F32.9 Major depressive disorder, single episode, unspecified; Z66 Do not resuscitate; R13.12 Dysphagia, oropharyngeal phase; E66.9 Obesity, unspecified; Z68.23 Body mass index [BMI] 23.0-23.9, adult; B96.4 Proteus (mirabilis) (morganii) as the cause of diseases classified elsewhere; Z79.82 Long term (current) use of aspirin; Z88.2 Allergy status to sulfonamides; Z88.8 Allergy status to other drugs, medicaments and biological substances
CPT/HCPCS: 36415; 36416; 51701; 71045; 74230; 80048; 81015; 83605; 85025; 87040; 87077; 87086; 87186; 94640; 96361; 96365; 96367; 96375; A4216; A4353; G8996-GN-CK; G8996-GN-CM; G8997-GN-CJ; G8997-GN-CM; J0131; J0295; J0696; J1650; J1940; J3370; J7050; J7644; S0028

== ENCOUNTER 2018-08-09 10:29 | Inpatient (IN) | payer MEDICARE ==
[~2018-08-09 10:29] MED LIST: ISOVUE-370 76%-LOCM 1 ML ONE
[2018-08-09 11:01] LABS: #Eosinphils 0.2 thou/uL (0.0-0.7); #Monocytes 0.7 thou/uL (0.11-0.59); #Neutrophils 5.3 thou/uL (1.40-6.50); %Basophils 0.6 % (0.0-1.0); %Eosinophils 2.4 % (0.0-10.0); %Lymphocytes 23.9 % (21.0-51.0); %Neutrophils 64.1 % (42.0-75.0); Hemoglobin 12.6 g/dL (12.0-16.0); Mean Corpuscular HGB CONC 32.3 g/dL (32.0-36.0); Mean Corpuscular Hemoglobin 29.8 pg (27.0-31.0); Mean Corpuscular Volume 92.1 fL (78.0-98.0); Mean Platelet Volume 7.9 fL (7.4-10.4); Platelet Count 184 thou/uL (130-400); RBC Distribution Width 13.6 % (11.5-14.5); Red Blood Cell (RBC) Count 4.25 mill/uL (4.20-5.40); White Blood Cell (WBC) Count 8.2 thou/uL (4.8-10.8)
--- NOTE | 2018-08-09 11:17 | RAD ---
PORTABLE CHEST: HISTORY: Cough. COMPARISON: 10/07/2017 FINDINGS: Heart size is borderline for the portable technique. There are atherosclerotic changes of the aorta. There is some blunting to the left costophrenic angle, stable, probably related to some scarring. There is no focal infiltrative process. IMPRESSION: 1. Borderline heart size. 2. No active intrathoracic disease. POS: CET
[2018-08-09 11:22] LABS: ALT (SGPT) 11 U/L (8-55); AST (SGOT) 12 U/L (5-34); Albumin 3.7 g/dL (3.4-4.8); Alkaline Phosphatase 85 U/L (40-150); Anion Gap 13 mmol/L (10-20); BUN (Urea Nitrogen) 15 mg/dL (9.8-20.1); Bilirubin, Total 0.8 mg/dL (0.2-1.2); Calc. Creatinine Clearance 0 mL/min (70-130); Calcium 9.1 mg/dL (7.8-10.44); Carbon Dioxide 23 mmol/L (23-31); Chloride 107 mmol/L (98-107); Estimated GFR-MDRD Greater than 90; Globulin 3.4 g/dL (2.4-3.5); Glucose 158 mg/dL (83-110); Potassium 3.6 mmol/L (3.5-5.1); Protein, Total 7.1 g/dL (6.0-8.3); Sodium 139 mmol/L (136-145)
[2018-08-09 12:10] LABS: Bilirubin Negative (Negative); Blood, Urine Large (Negative); Clarity TURBID (Clear); Glucose, Urine (Dipstick) Negative (Negative); Leukocyte Large (Negative); Nitrite Positive (Negative); Protein, Urine (Dipstick) Trace mg/dL (Neg-Trace); Specific Gravity, Urine 1.023 (1.002-1.036); Urobilinogen 0.2 mg/dL (0.2-1.0); pH, Urine 5.5 (5.0-9.0)
[2018-08-09 12:16] LABS: Bacteria/HPF 4+ HPF (None Seen)
[2018-08-09 12:18] LABS: Pathc Cast-AUWi Flag 23.64 (0-2.49); Yeast-AUWi Flag 307.3 (0-25.0)
[2018-08-09 12:31] LABS: RBC/HPF 0-3 HPF (0-3)
[2018-08-09 12:32] LABS: Crystals/HPF 1+ AMORPH URATES HPF (Negative); Hyaline Casts/LPF NONE SEEN LPF (0-3 Hyaline); Manual Microscopic Reviewed? No Path Casts Seen
[2018-08-09] MEDS ORDERED: cefTRIAXone\\ROCEPHIN 1 GM VIAL ONE ×2 (12:49→13:05)
[2018-08-09] MEDS ORDERED: Sodium Chloride 0.9% 100 ML ONE (12:49)
--- NOTE | 2018-08-09 13:22 | CT ---
BRAIN CT WITHOUT IV CONTRAST: HISTORY: Altered mental status, cough. COMPARISON: 04/03/2013. FINDINGS: Stable atrophy and extensive bilateral white matter changes which is nonspecific and could be related to a history of multiple sclerosis or severe bilateral chronic white matter ischemic change. No mas s or bleed. Minimal sinus mucosal disease and minimal fluid in the left maxillary sinus. The mastoi ds are clear. IMPRESSION: Stable appearance of the brain with extensive bilateral white matter disease. Sinus mucosal changes with some fluid in the left maxillary sinus. POS: C
--- NOTE | 2018-08-09 13:55 | CT ---
CT THORAX WITH CONTRAST: 08/09/2018 HISTORY: A 73-year-old female with a cough. TECHNIQUE: IV iodinated contrast media: Isovue-370 95 mL. FINDINGS: There are confluent, patchy air space densities in the left lower lobe, beginning at the posterior as pect of the left perihilar region, with streaky extensions down to the posterobasilar pleural surface at the base of the left lower lobe. There is mild air bronchogram within this. There is occlusion of the origin of the bronchus left lower lobe basilar bronchus (axial image 23 of 52, series 3). In the left upper lobe, there is an approximately 1 x 0.5 x 0.9 cm noncalcified pulmonary nodule, bro adly abutting the left posterolateral pleural surface, nonspecific. No pulmonary edema, pleural effusion, or pneumothorax. Subsegmental atelectasis at the bilateral franky g bases. Ectasia and tortuosity of the thoracic aorta. No pericardial effusion or mediastinal lymph adenopathy. IMPRESSION: Occlusion of the main basilar segment bronchus of the left lower lobe, resulting in patchy left lower lobe air space densities from the left hilum to the left base, which appears to represent post obstr uctive pneumonitis. Recommend production quality manager consultation. KATHYA Esquivel POS: JOSH
[2018-08-09] MEDS ORDERED: Acetaminophen 325 MG TAB PO PRN (14:49)
[2018-08-09] MEDS ORDERED: Bisacodyl 5 MG TAB PO PRN (14:49)
[2018-08-09] MEDS ORDERED: Acetaminophen 650 MG Suppository PR PRN (14:49)
[2018-08-09 14:59] LABS: Lactic Acid 1.7 mmol/L (0.5-2.2)
[2018-08-09] MEDS ORDERED: Azithromycin 500 MG VIAL ONE (15:03)
[2018-08-09] MEDS ORDERED: HumaLOG 300 UNITS/3 ML VIAL SC PRN (15:23)
[2018-08-09] MEDS ORDERED: Dextrose 50% Abboject 50 ML SYRINGE SLOW IVP PRN (15:23)
[2018-08-09] MEDS ORDERED: Dextrose 5% in Water 1,000 ML IV PRN (15:23)
--- NOTE | 2018-08-09 15:46 | HP ---
PRIMARY CARE PROVIDER: Charmaine Dorantes MD. CHIEF COMPLAINT: Cough. HISTORY OF PRESENT ILLNESS: Ms. Alatorre is a pleasant 73-year-old lady, who was seen at [facility] on August 09, 2018. The patient is unable to provide any significant history. Collateral history was obtained from discussion with the patient's , discussion with emergency room physician, and review of medical records. Ms. Alatorre is a resident at [facility]. She does not walk and the ron lift is used to transfer her. She reportedly had cough, which started yesterday. There is no history of fever. She was sent to the emergency room for evaluation for pneumonia. The patient's reports that since yesterday evening she has been lethargic and somnolent, which is unusual for her. REVIEW OF SYSTEMS: Could not be completed because the patient is a poor historian. PAST MEDICAL HISTORY: She had neurogenic bladder, multiple sclerosis, hypertension, diabetes mellitus type 2, gastroesophageal reflux disease, anxiety, and depression. PAST SURGICAL HISTORY: Status post ankle surgery, status post tonsillectomy, and status post vein stripping from both lower extremities. FAMILY HISTORY: Father had bladder cancer. CODE STATUS: I discussed her code status with her . She is DNAR. SOCIAL HISTORY: No history of tobacco, alcohol or recreational drug use. ALLERGIES: LEVOFLOXACIN AND SULFA. CURRENT MEDICATIONS: 1. Buspirone 10 mg 2 times a day. 2. Lexapro 20 mg daily. 3. Colace 100 mg 2 times a day. 4. Xanax 0.5 mg every 6 hours as needed. 5. [place] 1 tablet two times a day. 6. Aspirin 81 mg daily. 7. Cozaar 50 mg daily. 8. Lexapro 10 mg daily. 9. Remeron 15 mg at bedtime. 10. Protonix 40 mg daily. PHYSICAL EXAMINATION: GENERAL: On examination, Ms. Alatorre is awake and alert, not in acute distress. VITAL SIGNS: Blood pressure is 92/62, pulse 98, respiratory rate 21, and oxygen saturation 93% on room air. T-max was 99.1 degrees Fahrenheit in the emergency room. EYES: No scleral icterus, no conjunctival pallor. ENT: Dry mucosal membranes. No oropharyngeal erythema or exudates. NECK: Supple and nontender. Trachea is midline. RESPIRATORY: Accessory muscles of breathing are not active. Chest wall movements are symmetric bilaterally. She has left lower lobe bronchial breathing. CARDIOVASCULAR: S1 and S2 are heard, regular. Peripheral pulses palpable. No carotid bruit. No pericardial rub. ABDOMEN: Soft and nontender. Bowel sounds heard. NEUROLOGIC: Full neurologic examination was not possible secondary to the patient's noncooperation. There is no facial droop. Deep tendon reflexes are 2+, plantars downgoing bilaterally. MUSCULOSKELETAL: The patient is able to move all 4 extremities. SKIN: No rashes or subcutaneous nodules. LYMPHATIC: No cervical lymphadenopathy. PSYCHIATRIC: The patient appears to have normal mood. She is oriented to self , but not to place or time. LABORATORY DATA: Ms. Alatorre labs and investigations were reviewed. I reviewed her electrocardiogram, which shows normal sinus rhythm, no ST changes to suggest an acute coronary syndrome. I also reviewed her chest x-ray, does not show pulmonary infiltrates. She had noncontrast CT scan of the brain, which did not show any acute changes. She had CT scan of the chest, which showed occlusion of the main basilar segment bronchus of the left lower lobe resulting in patchy left lower lobe airspace densities from the left hilum to left base, which appears to represent postobstructive pneumonitis. She has an unremarkable CBC, normal electrolytes, decreased creatinine of 0.56, unremarkable LFTs, normal lactic acid level, and urinalysis that is positive for nitrite and leukocyte esterase. ASSESSMENT AND PLAN: Ms. Alatorre is a pleasant 73-year-old lady, who was seen at [facility] on August 09, 2018. Her problem list includes: 1. Acute metabolic encephalopathy: The patient has reportedly been lethargic and somnolent, according to her . She is presenting with acute metabolic encephalopathy, most likely secondary to a combination of pneumonia and urinary tract infection. She will be admitted to the hospital for further management. 2. Pneumonia: The patient appears to have postobstructive pneumonia. Pulmonology Service has been consulted by emergency room physician. We will start her on meropenem and azithromycin. Meropenem is being picked because she also has urinary tract infection, and in the past, she had urinary infections with multidrug resistant organisms. 3. Urinary tract infection: As mentioned, we will start the patient on IV meropenem. 4. Diabetes mellitus type 2: We will start the patient on Accu-Cheks and insulin sliding scale. We will provide ADA 1800-calorie diet with mechanical soft modification, which she is doing at [facility]. 5. Hypertension: Resume Cozaar, monitor vital signs, and titrate antihypertensives as needed. 6. Depression: Mild, appears to be stable. Continue Lexapro. 7. Gastroesophageal reflux disease: Continue Protonix. Many thanks for allowing me to participate in your patient's care. Please feel free to contact me with any questions or concerns. LEVEL OF RISK: High. LEVEL OF COMPLEXITY: High. Job ID: [id number] MTDD
[2018-08-09] MEDS: Azithromycin 500 MG in Sodium Chloride 0.9% 250 ML 250 ML IVPB SCH (19:10)
[2018-08-09] MEDS: Sodium Chloride 0.9% 1,000 ML IV SCH (19:12)
[2018-08-09 20:37] VITALS: BMI 23.3
[2018-08-09] MEDS: MEROPENEM 1 GM/50 ML 1 GM in Premix Bag 1 BAG IVPB SCH (22:20)
[2018-08-10] MEDS: MEROPENEM 1 GM/50 ML 1 GM in Premix Bag 1 BAG IVPB SCH ×3 (05:40→19:49)
[2018-08-10 05:48] LABS: #Basophils 0.1 thou/uL (0.0-0.2); #Eosinphils 0.2 thou/uL (0.0-0.7); #Lymphocytes 2.2 thou/uL (1.20-3.40); #Monocytes 0.7 thou/uL (0.11-0.59); %Basophils 0.5 % (0.0-1.0); %Eosinophils 1.6 % (0.0-10.0); %Lymphocytes 21.6 % (21.0-51.0); %Monocytes 6.7 % (0.0-10.0); %Neutrophils 69.7 % (42.0-75.0); Hemoglobin 11.6 g/dL (12.0-16.0); Mean Corpuscular HGB CONC 33.1 g/dL (32.0-36.0); Mean Corpuscular Hemoglobin 30.5 pg (27.0-31.0); Mean Corpuscular Volume 92.1 fL (78.0-98.0); Mean Platelet Volume 8.4 fL (7.4-10.4); Platelet Count 177 thou/uL (130-400); RBC Distribution Width 13.5 % (11.5-14.5); Red Blood Cell (RBC) Count 3.81 mill/uL (4.20-5.40); White Blood Cell (WBC) Count 10.1 thou/uL (4.8-10.8)
[2018-08-10 06:15] LABS: Anion Gap 10 mmol/L (10-20); BUN (Urea Nitrogen) 15 mg/dL (9.8-20.1); Calc. Creatinine Clearance 111 mL/min (70-130); Calcium 8.7 mg/dL (7.8-10.44); Carbon Dioxide 26 mmol/L (23-31); Chloride 109 mmol/L (98-107); Estimated GFR-MDRD Greater than 90; Glucose 92 mg/dL (83-110); Potassium 3.5 mmol/L (3.5-5.1); Sodium 141 mmol/L (136-145)
[2018-08-10] MEDS: Enoxaparin Sodium 40 MG/0.4 ML SYRINGE SC SCH (08:07)
--- NOTE | 2018-08-10 11:22 | EKG ---
Test Reason : Blood Pressure : / mmHG Vent. Rate : 087 BPM Atrial Rate : 087 BPM P-R Int : 156 ms QRS Dur : 086 ms QT Int : 518 ms P-R-T Axes : 178 240 188 degrees QTc Int : 623 ms Suspect arm lead reversal, interpretation assumes no reversal Unusual P axis, possible ectopic atrial rhythm Lateral infarct , age undetermined Inferior infarct , age undetermined Prolonged QT Abnormal ECG Confirmed by TRUDY VARMA DO ([id number]), features editor VINAYAK GARAY ([id number]) on 08/10/2018 11:22:00 AM Referred By: Confirmed By:TRUDY VARMA DO
[2018-08-10] MEDS: Sodium Chloride 0.9% 1,000 ML IV SCH (12:45)
[2018-08-10] MEDS: Azithromycin 500 MG in Sodium Chloride 0.9% 250 ML 250 ML IVPB SCH (12:46)
--- NOTE | 2018-08-10 13:53 | PDOC.PN ---
- Subjective Encounter Start Date: 08/10/18 Encounter Start Time: 12:20 Subjective: awake, not in distress -: responds well to verbal stimuli, takes time to respond -: moves upper extre better than lower, likely has some blindness - Objective Resuscitation Status - Order Detail: 08/09/18 14:49 Resuscitation Status Routine Resuscitation Status: DNAR: NO Resuscitation Discussed with: SARAVANAN Reviewed: Yes Vital Signs & Weight: Vital Signs (12 hours) Temp Pulse Resp BP BP Pulse Ox 08/10/18 08:00 98.5 F 93 20 94/61 92 L 08/10/18 04:32 99.0 F 90 16 100/67 90 L Weight Weight 144 lb 3.2 oz Result Diagrams: 08/10/18 04:29 08/10/18 04:29 Additional Labs: Accuchecks 08/10/18 08/09/18 04:37 20:10 POC Glucose 101 89 Phys Exam - Physical Examination HEENT: PERRLA, sclera anicteric Neck: no JVD, supple Respiratory: no wheezing, no rales Cardiovascular: RRR, no significant murmur Gastrointestinal: soft, non-tender, positive bowel sounds Musculoskeletal: no edema, pulses present has chronic MS Psychiatric: A&O x 3 Dx/Plan (1) UTI (urinary tract infection) Status: Acute Qualifiers: Urinary tract infection type: acute cystitis Hematuria presence: without hematuria Qualified Code(s): N30.00 - Acute cystitis without hematuria (2) Pneumonia Code(s): J18.9 - PNEUMONIA, UNSPECIFIED ORGANISM Status: Acute Qualifiers: Pneumonia type: due to unspecified organism Laterality: left Lung location: lower lobe of lung Qualified Code(s): J18.1 - Lobar pneumonia, unspecified organism (3) Metabolic encephalopathy Code(s): G93.41 - METABOLIC ENCEPHALOPATHY Status: Resolved (4) Hypertension Code(s): I10 - ESSENTIAL (PRIMARY) HYPERTENSION Status: Chronic Qualifiers: Hypertension type: essential hypertension Qualified Code(s): I10 - Essential (primary) hypertension (5) Multiple sclerosis Code(s): G35 - MULTIPLE SCLEROSIS Status: Chronic - Plan hemostable -: wants her to eat with h/o chr dysphagia -: is on meropenem and azithromycin -: dc iv fluids in am -: is wheel chair bound with foot drop and adv MS * . Review of Systems - Medications/Allergies Allergies/Adverse Reactions: Allergies Allergy/AdvReac Type Severity Reaction Status Date / Time levofloxacin [From Levaquin] Allergy Verified 10/05/17 02:56 Sulfa (Sulfonamide Allergy Verified 10/05/17 02:56 Antibiotics) Medications: Current Medications Acetaminophen (Tylenol) 650 mg PO Q4H PRN PRN Reason: Headache/Fever/Mild Pain (1-3) Acetaminophen (Tylenol) 650 mg [place] Q4H PRN PRN Reason: Headache/Fever/Mild Pain (1-3) Bisacodyl (Dulcolax) 10 mg PO DAILYPRN PRN PRN Reason: Constipation Dextrose/Water (Dextrose 50%) 25 gm SLOW IVP PRN PRN PRN Reason: Hypoglycemia Enoxaparin Sodium (Lovenox) 40 mg SC 0900 [facility] Last Admin: 08/10/18 08:07 Dose: 40 mg Glucagon (Glucagon) 1 mg IM PRN PRN PRN Reason: Hypoglycemia Meropenem 1 gm/ Device 50 mls @ 100 mls/hr IVPB Q8HR [facility] Last Admin: 08/10/18 12:48 Dose: 50 mls Azithromycin 500 mg/ Sodium (Chloride) 250 mls @ 250 mls/hr IVPB Q24HR [facility] Last Admin: 08/10/18 12:46 Dose: 250 mls Sodium Chloride (Normal Saline 0.9%) 1,000 mls @ 50 mls/hr IV .Q20H [facility] Last Admin: 08/10/18 12:45 Dose: 1,000 mls Dextrose/Water (D5w) 1,000 mls @ 0 mls/hr IV .Q0M PRN PRN Reason: Hypoglycemia Insulin Human Lispro (Humalog) 0 units SC .MILD SLIDING SCALE PRN PRN Reason: Mild Correctional Scale
[2018-08-11] MEDS: MEROPENEM 1 GM/50 ML 1 GM in Premix Bag 1 BAG IVPB SCH ×3 (05:30→20:02)
[2018-08-11] MEDS: Sodium Chloride 0.9% 1,000 ML IV SCH (08:05)
[2018-08-11] MEDS: Enoxaparin Sodium 40 MG/0.4 ML SYRINGE SC SCH (08:05)
[2018-08-11] MEDS ORDERED: Sodium Chloride 0.9% 1,000 ML IV SCH (11:30)
--- NOTE | 2018-08-11 12:54 | CON ---
DATE OF CONSULTATION: 08/11/2018 SERVICE: Pulmonary Medicine. REASON FOR CONSULTATION: Abnormal CT. HISTORY OF PRESENT ILLNESS: The patient is a 73-year-old white female with past medical history significant for profound debility. She has multiple sclerosis and is essentially bed-bound at this point. She has a difficult time speaking and has word-finding difficulties. She was in her usual state of health until she started having increasing cough. She was brought to the emergency department where a CT of the chest demonstrated a left lower lobe infiltrate. She has also had endobronchial changes. It is not clear whether or not this was secondary to inspissated mucus or whether not there is true endobronchial growth there. Either way, Pulmonary consultation was placed. She was placed on broad-spectrum antibiotics and over the last couple of days, the cough is improved ever so slightly. She demonstrates a very weak cough and does not have the strength in order to get the sputum out of her chest. PAST MEDICAL HISTORY: 1. Multiple sclerosis with chronic debility. 2. Hypertension. 3. Dyslipidemia. 4. Type 2 diabetes mellitus. 5. Gastroesophageal reflux disease. 6. Neurogenic bladder. 7. Anxiety disorder. 8. Major depressive disorder. PAST SURGICAL HISTORY: 1. Ankle surgery. 2. Tonsillectomy. 3. Lower extremity vein stripping, bilateral. FAMILY HISTORY: Noncontributory. SOCIAL HISTORY: Negative for alcohol, tobacco, or illicit drug use. She has very profound debility, and spends most of her time in bed. She has bilateral footdrop, and cannot get around without assistance. ALLERGIES: LEVAQUIN AND SULFA. MEDICATIONS: List of her inpatient medications was reviewed. No specific updates were made at this time. REVIEW OF SYSTEMS: This cannot be obtained secondary to static encephalopathy. PHYSICAL EXAMINATION: VITAL SIGNS: Afebrile with a T-max of 99.0, pulse 90, blood pressure 106/61, respirations are 20, and saturation 92% on room air. GENERAL: The patient is awake and alert, in no apparent distress. LUNGS: Rhonchi are present throughout bilateral lung galvan. She has poor air entry, but no prolonged expiratory phase. I appreciate no wheezing or crackles. HEART: Normal rate, regular. ABDOMEN: Soft, nontender, and nondistended. Bowel sounds are positive. MUSCULOSKELETAL: No cyanosis or clubbing. No pitting in the bilateral lower extremities. NEUROLOGIC: She demonstrates diffuse weakness of the bilateral upper and lower extremities. LABORATORY DATA: WBC 10.1 and stable, hemoglobin 11.6, platelets are 177,000. Basic metabolic profile is otherwise unremarkable. Liver function studies are unremarkable. Urinalysis is positive for pyuria, leukocyte esterase, and nitrites. Urine culture is growing gram-negative jade, alpha hemolytic strep, and nonhemolytic Streptococcus. One out of two blood cultures is growing coag-negative staph. IMAGING: CT of the chest demonstrates an infiltrate in the left lower lobe. She has endobronchial changes there. I favor inspissated mucus, but endobronchial disease cannot be excluded. CT of the brain demonstrates extensive bilateral white matter disease. Sinus mucosal changes with air-fluid levels of the left maxillary sinus is present. ASSESSMENT: 1. Healthcare-associated pneumonia. 2. Sinusitis. 3. Sepsis without end-organ damage. 4. Endobronchial change. DISCUSSION AND PLAN: We will set up for bronchoscopy tomorrow morning. I will make her n.p.o. after midnight in preparation for this. Palliative Care consultation will be placed as the patient is essentially bed-bound and does not have the strength in order to expectorate mucus. Antibiotics can be limited to 10-day duration for the sinusitis and a 5-day duration for the pneumonia. Pulmonary will continue to follow for the time being. 70 minutes have been devoted to this patient in various activities. I personally reviewed all imaging studies and laboratory data noted within this document. For fifty percent of this time, I was interacting with the patient at the bedside or coordinating care with the care team. For the remainder of the time I was immediately available to the patient in the hospital unit. Job ID: [id number] [facility]
--- NOTE | 2018-08-11 14:13 | PDOC.PN ---
- Subjective Encounter Start Date: 08/11/18 Encounter Start Time: 13:00 Subjective: awake, no sob - Objective Resuscitation Status - Order Detail: 08/09/18 14:49 Resuscitation Status Routine Resuscitation Status: DNAR: NO Resuscitation Discussed with: SARAVANAN Reviewed: Yes Vital Signs & Weight: Vital Signs (12 hours) Temp Pulse Resp BP Pulse Ox 08/11/18 08:00 97.9 F 90 20 106/61 92 L Weight Weight 144 lb 3.2 oz Result Diagrams: 08/10/18 04:29 08/10/18 04:29 Additional Labs: Accuchecks 08/11/18 08/11/18 08/10/18 10:55 04:27 19:35 POC Glucose 140 H 84 76 08/10/18 17:42 POC Glucose 77 Phys Exam - Physical Examination HEENT: PERRLA, moist MMs Neck: no nodes, no JVD Respiratory: no wheezing, no rales Cardiovascular: RRR, no significant murmur Gastrointestinal: soft, non-tender, positive bowel sounds Musculoskeletal: pulses present, edema present has paraplegia, foot drop Psychiatric: normal affect, A&O x 3 Dx/Plan (1) UTI (urinary tract infection) Status: Acute Qualifiers: Urinary tract infection type: acute cystitis Hematuria presence: without hematuria Qualified Code(s): N30.00 - Acute cystitis without hematuria (2) Pneumonia Code(s): J18.9 - PNEUMONIA, UNSPECIFIED ORGANISM Status: Acute Qualifiers: Pneumonia type: due to unspecified organism Laterality: left Lung location: lower lobe of lung Qualified Code(s): J18.1 - Lobar pneumonia, unspecified organism (3) Metabolic encephalopathy Code(s): G93.41 - METABOLIC ENCEPHALOPATHY Status: Resolved (4) Hypertension Code(s): I10 - ESSENTIAL (PRIMARY) HYPERTENSION Status: Chronic Qualifiers: Hypertension type: essential hypertension Qualified Code(s): I10 - Essential (primary) hypertension (5) Multiple sclerosis Code(s): G35 - MULTIPLE SCLEROSIS Status: Chronic Comment: advanced - Plan likely has progressive MS -: is on meropenem and zithromax, nebs -: is going for bronchoscopy in am -: prognosis is guarded, pt is DNAR -: dc iv fluids if she is tolerating oral diet well * . Review of Systems - Medications/Allergies Allergies/Adverse Reactions: Allergies Allergy/AdvReac Type Severity Reaction Status Date / Time levofloxacin [From Levaquin] Allergy Verified 10/05/17 02:56 Sulfa (Sulfonamide Allergy Verified 10/05/17 02:56 Antibiotics) Medications: Current Medications Acetaminophen (Tylenol) 650 mg PO Q4H PRN PRN Reason: Headache/Fever/Mild Pain (1-3) Acetaminophen (Tylenol) 650 mg [place] Q4H PRN PRN Reason: Headache/Fever/Mild Pain (1-3) Bisacodyl (Dulcolax) 10 mg PO DAILYPRN PRN PRN Reason: Constipation Dextrose/Water (Dextrose 50%) 25 gm SLOW IVP PRN PRN PRN Reason: Hypoglycemia Enoxaparin Sodium (Lovenox) 40 mg SC 0900 [facility] Last Admin: 08/11/18 08:05 Dose: 40 mg Glucagon (Glucagon) 1 mg IM PRN PRN PRN Reason: Hypoglycemia Meropenem 1 gm/ Device 50 mls @ 100 mls/hr IVPB Q8HR [facility] Last Admin: 08/11/18 05:30 Dose: 50 mls Azithromycin 500 mg/ Sodium (Chloride) 250 mls @ 250 mls/hr IVPB Q24HR [facility] Last Admin: 08/10/18 12:46 Dose: 250 mls Sodium Chloride (Normal Saline 0.9%) 1,000 mls @ 50 mls/hr IV .Q20H [facility] Last Admin: 08/11/18 08:05 Dose: 1,000 mls Dextrose/Water (D5w) 1,000 mls @ 0 mls/hr IV .Q0M PRN PRN Reason: Hypoglycemia Insulin Human Lispro (Humalog) 0 units SC .MILD SLIDING SCALE PRN PRN Reason: Mild Correctional Scale
[2018-08-11] MEDS: Azithromycin 500 MG in Sodium Chloride 0.9% 250 ML 250 ML IVPB SCH (16:42)
[2018-08-12] MEDS: Sodium Chloride 0.9% 1,000 ML IV SCH (02:56)
[2018-08-12] MEDS: MEROPENEM 1 GM/50 ML 1 GM in Premix Bag 1 BAG IVPB SCH ×3 (06:07→20:50)
[2018-08-12] MEDS: Enoxaparin Sodium 40 MG/0.4 ML SYRINGE SC SCH (09:00)
[2018-08-12] MEDS ORDERED: Dexamethasone 20 MG/5 ML VIAL ONE (10:49)
[2018-08-12] MEDS ORDERED: Succinylcholine Chloride 20 MG/ML 10 ml SYRINGE FS ONE (10:49)
[2018-08-12] MEDS ORDERED: Ondansetron PF 4 MG/2 ML Vial ONE (10:49)
[2018-08-12] MEDS ORDERED: PROPOFOL 200 MG/20 ML VIAL ONE (10:49)
[2018-08-12] MEDS ORDERED: Lidocaine 1% PF 5 ML VIAL ONE (10:49)
--- NOTE | 2018-08-12 10:53 | PDOC.PALCO ---
Palliative Care Consult - Consult Details Requesting Physician: Dr Hickey Reason for Consult: goals of care, assistance with communication prognosis/ disease - Pertinent HPI Patient with long history of Multiple Sclerosis that appears to be progressive in nature. Resident at [facility] and was taken to the ER for evaluation secondary to increase in lethargy as per . Patient was seen and admitted to the hospital, Dr Hickey requesting palliative care for consult in relation to goals of care. Patient currently being treated for Pnumonia and UTI. - Pertinent PMH MS, DMII, HTN, Reflux, Anxiety/Depression - Social History Smoking Status: Never smoker Smoking: no tobacco exposure Alcohol Use: none Drug Use History: none Living Situation: [facility] - Medications MAR Reviewed: Yes - Allergies Allergies/Adverse Reactions: Allergies Allergy/AdvReac Type Severity Reaction Status Date / Time levofloxacin [From Levaquin] Allergy Verified 10/05/17 02:56 Sulfa (Sulfonamide Allergy Verified 10/05/17 02:56 Antibiotics) - Subjective Patient with pallor, slight pursed lip breathing with minimal accessory muscle use. Confusion, poor historian but able to converse in a conversation, however her responses are delayed. NPO currently for broncoscopy. Patient denies having difficulty swallowing, observed having difficulty clearing secretions as she has a weak cough. Incontinent of bowel and bladder. - Objective Vital Signs: Vital Signs - Most Recent Temp Pulse Resp BP Pulse Ox 98.4 F 80 18 91/57 L 95 08/12/18 07:59 08/12/18 07:59 08/12/18 07:59 08/12/18 07:59 08/12/18 07:59 Palliative Performance Scale: 30 - Physical Exam Constitutional: confusion Deviation from normal: Patient has delayed response to quesitons. Poor memory recall. HEENT: moist MMs Deviation from normal: pursed lip breathing, adventicious bs r upper appear to be bronchieal Cardiovascular: irregular Gastrointestinal: soft, non-tender, positive bowel sounds Musculoskeletal: no edema Deviation from normal: foot drop bilat. weak pier master assistant to upper ext, minimal movement to lower ext Deviation from normal: Pallor, cap refill greater than 3 sec to lower ext - Problem List (1) Palliative care encounter Code(s): Z51.5 - ENCOUNTER FOR PALLIATIVE CARE Current Visit: Yes Status: Acute - Plan/Recommendations Plan: *Initiated scheduled medication to relieve constipation *Discuss with Dr Hickey use of Scopolamine patch to mitigate symptoms/ complications related to oral secretions *Follow up with and patient to discuss wishes patient had discussed in past related to goals of care. [50] minutes spent on this encounter with >50% of the time in counseling and coordination of care. Thank you for this very appropriate consult.
[2018-08-12] MEDS ORDERED: Scopolamine 1.5 mg/72 hour Patch TD SCH (12:00)
[2018-08-12] MEDS ORDERED: Fentanyl 100 MCG/2 ML VIAL ONE (12:17)
--- NOTE | 2018-08-12 13:10 | PDOC.PN ---
- Subjective Encounter Start Date: 08/12/18 Encounter Start Time: 11:40 Subjective: awake, not in distress - Objective Resuscitation Status - Order Detail: 08/09/18 14:49 Resuscitation Status Routine Resuscitation Status: DNAR: NO Resuscitation Discussed with: SARAVANAN Reviewed: Yes Vital Signs & Weight: Vital Signs (12 hours) Temp Pulse Resp BP BP Pulse Ox 08/12/18 08:00 95 08/12/18 07:59 98.4 F 80 18 91/57 L 95 08/12/18 04:47 98.5 F 68 12 93/62 94 L Weight Weight 144 lb 3.2 oz I&O: 08/11/18 08/12/18 08/13/18 06:59 06:59 06:59 Intake Total 100 Output Total 450 Balance -350 Result Diagrams: 08/10/18 04:29 08/10/18 04:29 Additional Labs: Accuchecks 08/12/18 08/11/18 08/11/18 04:48 22:20 16:54 POC Glucose 99 98 121 H Phys Exam - Physical Examination HEENT: PERRLA, moist MMs Neck: no JVD, supple Respiratory: no wheezing, no rales Cardiovascular: RRR, no significant murmur Gastrointestinal: soft, no distention, positive bowel sounds Musculoskeletal: pulses present paraplegia, UE lifts forearms above bed 2-3/5 strength Dx/Plan (1) UTI (urinary tract infection) Status: Acute Qualifiers: Urinary tract infection type: acute cystitis Hematuria presence: without hematuria Qualified Code(s): N30.00 - Acute cystitis without hematuria (2) Pneumonia Code(s): J18.9 - PNEUMONIA, UNSPECIFIED ORGANISM Status: Acute Qualifiers: Pneumonia type: due to unspecified organism Laterality: left Lung location: lower lobe of lung Qualified Code(s): J18.1 - Lobar pneumonia, unspecified organism (3) Metabolic encephalopathy Code(s): G93.41 - METABOLIC ENCEPHALOPATHY Status: Resolved (4) Hypertension Code(s): I10 - ESSENTIAL (PRIMARY) HYPERTENSION Status: Chronic Qualifiers: Hypertension type: essential hypertension Qualified Code(s): I10 - Essential (primary) hypertension (5) Multiple sclerosis Code(s): G35 - MULTIPLE SCLEROSIS Status: Chronic Comment: advanced - Plan is on zithromax, meropenem, nebs, gentle iv fluids -: for bronch today -: 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 Review of Systems - Medications/Allergies Allergies/Adverse Reactions: Allergies Allergy/AdvReac Type Severity Reaction Status Date / Time levofloxacin [From Levaquin] Allergy Verified 10/05/17 02:56 Sulfa (Sulfonamide Allergy Verified 10/05/17 02:56 Antibiotics) Medications: Current Medications Acetaminophen (Tylenol) 650 mg PO Q4H PRN PRN Reason: Headache/Fever/Mild Pain (1-3) Acetaminophen (Tylenol) 650 mg [place] Q4H PRN PRN Reason: Headache/Fever/Mild Pain (1-3) Dextrose/Water (Dextrose 50%) 25 gm SLOW IVP PRN PRN PRN Reason: Hypoglycemia Docusate Sodium (Colace) 100 mg PO BID [facility] Enoxaparin Sodium (Lovenox) 40 mg SC 0900 [facility] Last Admin: 08/12/18 09:00 Dose: Not Given Glucagon (Glucagon) 1 mg IM PRN PRN PRN Reason: Hypoglycemia Meropenem 1 gm/ Device 50 mls @ 100 mls/hr IVPB Q8HR [facility] Last Admin: 08/12/18 06:07 Dose: 50 mls Azithromycin 500 mg/ Sodium (Chloride) 250 mls @ 250 mls/hr IVPB Q24HR [facility] Last Admin: 08/11/18 16:42 Dose: 250 mls Sodium Chloride (Normal Saline 0.9%) 1,000 mls @ 50 mls/hr IV .Q20H [facility] Last Admin: 08/12/18 02:56 Dose: 1,000 mls Dextrose/Water (D5w) 1,000 mls @ 0 mls/hr IV .Q0M PRN PRN Reason: Hypoglycemia Insulin Human Lispro (Humalog) 0 units SC .MILD SLIDING SCALE PRN PRN Reason: Mild Correctional Scale Scopolamine (Transderm Scop) 1.5 mg TD Q3D [facility]
--- NOTE | 2018-08-12 13:36 | PRG ---
DATE OF SERVICE: 08/12/2018 SERVICE: Pulmonary Medicine. INTERVAL HISTORY: The patient is doing really well from respiratory standpoint. She indicates that her cough is improved, and her shortness of breath is much better. She denies any fevers, chills, nausea, or vomiting. I was able to touch base with Dr. Dorantes today. She is okay with pursuing a bronchoscopy for diagnostic and possible therapeutic purposes. She relates to me that the patient had a significant decline over the past three months and was planning on talking to the patient's about getting her back on hospice. PHYSICAL EXAMINATION: VITAL SIGNS: Afebrile, pulse 80, blood pressure 91/57, respirations 18, and saturation 95% on room air. GENERAL: The patient is awake and alert, in no apparent distress. LUNGS: Very good air entry. Rhonchi are present. There is no prolonged expiratory phase or wheezing present. HEART: Normal rate, regular. ABDOMEN: Soft, nontender, nondistended. Bowel sounds are positive. MUSCULOSKELETAL: No cyanosis or clubbing. No pitting in the bilateral lower extremities. NEUROLOGIC: Grossly nonfocal. LABORATORY DATA: Urine culture is growing multiple species including E coli, Aerococcus, and Streptococcus. Blood cultures growing coag-negative Staph in one out of two. ASSESSMENT: 1. Healthcare-associated pneumonia. 2. Sinusitis. 3. Sepsis without end-organ damage. 4. Urinary tract infection versus colonization. 5. Endobronchial abnormality on CT chest. DISCUSSION AND PLAN: I have talked to the patient's . We talked about the risks and benefits of pursuing a bronchoscopy. I also talked to Dr. Dorantes. She is okay with doing a diagnostic and possibly therapeutic bronchoscopy. As such, we will move forward with this. My suspicion is we will be just sucking out a mucus plug out of left lower lobe. That being said, we will also be able to make certain there is no endobronchial growth there. If there is, I will go ahead and take a biopsy of it. Pulmonary/Critical Care will continue to follow along while the patient remains inhouse. Job ID: [id number]
[2018-08-12] MEDS: Azithromycin 500 MG in Sodium Chloride 0.9% 250 ML 250 ML IVPB SCH (14:51)
[2018-08-12 15:05] LABS: BF Color Red; Body Fluid Source Bronchial Washings; Clarity Cloudy/Turbid (Clear); RBC Background Count 0.003; RBC Count-Automated 708000 /cumm; Tube # 1; WBC/NonHematic-Auto 30900 /cumm
[2018-08-12 16:01] LABS: BF Segmented Neutrophils 71 %; Cell Count Non Hematic 27 %; Lymphocytes 2 %
[2018-08-12] MEDS: Docusate 100 MG CAP PO SCH (20:50)
[2018-08-13] MEDS: MEROPENEM 1 GM/50 ML 1 GM in Premix Bag 1 BAG IVPB SCH ×3 (05:41→23:20)
[2018-08-13] MEDS: Sodium Chloride 0.9% 1,000 ML IV SCH (05:41)
[2018-08-13] MEDS: Docusate 100 MG CAP PO SCH ×2 (09:17→20:59)
[2018-08-13] MEDS: Enoxaparin Sodium 40 MG/0.4 ML SYRINGE SC SCH (09:17)
--- NOTE | 2018-08-13 10:11 | OP ---
DATE OF PROCEDURE: 08/12/2018 SERVICE: Pulmonary Medicine. PROCEDURE PERFORMED: Fiberoptic bronchoscopy with, 1. Visual airway inspection. 2. Endobronchial brushing from the left upper lobe. 3. Bronchial wash. PREOPERATIVE DIAGNOSES: 1. Pulmonary infiltrate. 2. Abnormal CT with endobronchial lesion. POSTOPERATIVE DIAGNOSES: 1. Pulmonary infiltrate. 2. Abnormal CT with endobronchial lesion. MEDICATIONS: For list of medications, please refer to Anesthesia documentation. Per Anesthesia assessment, H and P had been performed. The patient's medications and allergies were reviewed. Informed consent was obtained after discussing the risks, benefits, and rationale for performing the procedure as well as alternative options with the patient's . DESCRIPTION OF PROCEDURE: A time-out was performed identifying the correct procedure and patient with name and date of . A diagnostic fiberoptic bronchoscope was introduced through the endotracheal tube. It was advanced into the trachea, and a tracheal bronchial tree inspection was carried out with clear identification of the right upper lobe, right middle lobe, right lower lobe, and left lower lobe. Excessive secretions were present in the left mainstem bronchus, completely plugging it up. After these were aggressively suctioned away, there was significant amount of inflammation located in the left upper lobe. I could identify the left upper lobe and lingula orifice, but the bronchoscope could not pass in into these 2 segments. All segments of the left lower lobe were open and patent. The mucosa was extraordinarily friable, though I did not identify any significant endobronchial disease there. Under direct observation, the left upper lobe and lingula bronchi were brushed. A wash was obtained from the left upper lobe. FINDINGS: 1. No discrete endobronchial disease was identified. 2. Significant, extensive inflammatory changes were present in the left upper lobe preventing me from advancing the scope into the left upper lobe or lingula. 3. Secretions were extraordinarily heavy and thick, and green/yellow purulent. SPECIMENS OBTAINED: 1. Pathology on brush, and bronchial wash. 2. Microbiology on bronchial wash. COMPLICATIONS: None. ESTIMATED BLOOD LOSS: 2 mL FLUOROSCOPY TIME: None. DISPOSITION: The patient will be transitioned back to her unit when she meets criteria in the postanesthesia care unit. Job ID: [id number]
--- NOTE | 2018-08-13 14:29 | PRG ---
DATE OF SERVICE: 08/13/2018 SERVICE: Pulmonary Medicine. INTERVAL HISTORY: The patient is doing really well from respiratory standpoint. Breathing comfortably. She has no complaints of chest pain, fevers, cough, nausea, or vomiting. She indicates that her breathing is much improved and she has no chest pain. PHYSICAL EXAMINATION: VITAL SIGNS: Afebrile, pulse 70, blood pressure 107/65, respirations 20, saturation 99% on room air. GENERAL: The patient is awake and alert, in no apparent distress. LUNGS: Decent air entry. Rhonchi are much improved, but still present. HEART: Normal rate and regular. ABDOMEN: Soft, nontender, nondistended. Bowel sounds are positive. MUSCULOSKELETAL: No cyanosis or clubbing. No pitting in the bilateral lower extremities. NEUROLOGIC: Grossly nonfocal. LABORATORY DATA: Body fluid has 71% neutrophils and 27% nonhematologic cells. There were significant red blood cells present as well. Urine culture is growing E coli, Aerococcus, and nonhemolytic strep. Blood cultures are growing coag-negative Staph in 1/2. Respiratory culture has moderate white blood cells seen, but no organisms are identified. AFB smear is negative for organisms. Cytology demonstrates reactive bronchial respiratory epithelial cells and macrophages. There is a background of acute inflammatory infiltrate. There is no atypia or malignancy identified in the bronchial washing or in the brushing of the atypical bronchi in the left upper lobe. ASSESSMENT: 1. Healthcare-associated pneumonia. 2. Sinusitis. 3. Sepsis without end-organ damage. 4. Urinary tract infection versus colonization. 5. Mucus plug of the left mainstem bronchus. DISCUSSION AND PLAN: The patient is now stable for transition out of the hospital. At this point, she has no further requirements for inpatient Pulmonary or Critical Care opinion, and I will sign off. She will need 5 days of antibiotics as directed at lung-related issues. She will need 10 to 14 days of antibiotics for the sinusitis and/or urinary tract infection. She has no further requirements for inpatient Pulmonary or Critical Care opinion, and I will sign off. When she gets back to the nursing facility, hospice should once again be considered as based on what Dr. Dorantes has told me, the patient has had a significant decline in just the last 3 months. Job ID: [id number]
[2018-08-13] MEDS: Azithromycin 500 MG in Sodium Chloride 0.9% 250 ML 250 ML IVPB SCH (15:29)
--- NOTE | 2018-08-13 15:32 | PDOC.PN ---
- Subjective Encounter Start Date: 08/13/18 Encounter Start Time: 08:40 Subjective: more awake and alert this am -: is speaking more sentences this am - Objective Resuscitation Status - Order Detail: 08/09/18 14:49 Resuscitation Status Routine Resuscitation Status: DNAR: NO Resuscitation Discussed with: SARAVANAN Reviewed: Yes Vital Signs & Weight: Vital Signs (12 hours) Temp Pulse Resp BP BP Pulse Ox 08/13/18 13:21 74 20 97 08/13/18 08:18 96.8 F L 70 20 107/65 99 08/13/18 08:00 99 08/13/18 07:10 75 16 94 L 08/13/18 04:00 98.7 F 75 20 110/72 94 L Weight Weight 144 lb 3.2 oz I&O: 08/12/18 08/13/18 08/14/18 06:59 06:59 06:59 Intake Total 100 1250 240 Output Total 450 750 Balance -350 500 240 Result Diagrams: 08/10/18 04:29 08/10/18 04:29 Additional Labs: Accuchecks 08/13/18 08/13/18 08/13/18 11:38 04:04 01:49 POC Glucose 122 H 134 H 148 H 08/12/18 16:41 POC Glucose 113 H Phys Exam - Physical Examination HEENT: PERRLA, moist MMs Neck: no JVD, supple Respiratory: no wheezing, no rales Cardiovascular: RRR, no significant murmur Gastrointestinal: soft, non-tender, positive bowel sounds Musculoskeletal: pulses present, edema present paraplegia Dx/Plan (1) UTI (urinary tract infection) Status: Acute Qualifiers: Urinary tract infection type: acute cystitis Hematuria presence: without hematuria Qualified Code(s): N30.00 - Acute cystitis without hematuria (2) Pneumonia Code(s): J18.9 - PNEUMONIA, UNSPECIFIED ORGANISM Status: Acute Qualifiers: Pneumonia type: due to unspecified organism Laterality: left Lung location: lower lobe of lung Qualified Code(s): J18.1 - Lobar pneumonia, unspecified organism (3) Metabolic encephalopathy Code(s): G93.41 - METABOLIC ENCEPHALOPATHY Status: Resolved (4) Hypertension Code(s): I10 - ESSENTIAL (PRIMARY) HYPERTENSION Status: Chronic Qualifiers: Hypertension type: essential hypertension Qualified Code(s): I10 - Essential (primary) hypertension (5) Multiple sclerosis Code(s): G35 - MULTIPLE SCLEROSIS Status: Chronic Comment: advanced - Plan d/w over phone, is aware of progressively decline of his -: palliative care to continue at [facility] and to institute hospice if she -: -worsens or gets another lung infection. Is at high risk for asp again -: will switch to vantin po x 5 days -: dc iv fluids, nico hose to LE * . Review of Systems - Medications/Allergies Allergies/Adverse Reactions: Allergies Allergy/AdvReac Type Severity Reaction Status Date / Time levofloxacin [From Levaquin] Allergy Verified 10/05/17 02:56 Sulfa (Sulfonamide Allergy Verified 10/05/17 02:56 Antibiotics) Medications: Current Medications Acetaminophen (Tylenol) 650 mg PO Q4H PRN PRN Reason: Headache/Fever/Mild Pain (1-3) Acetaminophen (Tylenol) 650 mg [place] Q4H PRN PRN Reason: Headache/Fever/Mild Pain (1-3) Albuterol/Ipratropium (Duoneb) 3 ml NEB [id number] [facility] Last Admin: 08/13/18 13:21 Dose: 3 ml Dextrose/Water (Dextrose 50%) 25 gm SLOW IVP PRN PRN PRN Reason: Hypoglycemia Docusate Sodium (Colace) 100 mg PO BID [facility] Last Admin: 08/13/18 09:17 Dose: 100 mg Enoxaparin Sodium (Lovenox) 40 mg SC 0900 [facility] Last Admin: 08/13/18 09:17 Dose: 40 mg Glucagon (Glucagon) 1 mg IM PRN PRN PRN Reason: Hypoglycemia Meropenem 1 gm/ Device 50 mls @ 100 mls/hr IVPB Q8HR [facility] Last Admin: 08/13/18 13:49 Dose: 50 mls Azithromycin 500 mg/ Sodium (Chloride) 250 mls @ 250 mls/hr IVPB Q24HR [facility] Last Admin: 08/13/18 15:29 Dose: 250 mls Sodium Chloride (Normal Saline 0.9%) 1,000 mls @ 50 mls/hr IV .Q20H [facility] Last Admin: 08/13/18 05:41 Dose: 1,000 mls Dextrose/Water (D5w) 1,000 mls @ 0 mls/hr IV .Q0M PRN PRN Reason: Hypoglycemia Insulin Human Lispro (Humalog) 0 units SC .MILD SLIDING SCALE PRN PRN Reason: Mild Correctional Scale Scopolamine (Transderm Scop) 1.5 mg TD Q3D [facility] Last Admin: 08/12/18 14:45 Dose: 1.5 mg
--- NOTE | 2018-08-13 16:58 | PQF ---
CLINICAL DOCUMENTATION IMPROVEMENT CLARIFICATION FORM: ICD-10 Updated PLEASE DO AN ADDENDUM TO THE PROGRESS NOTE WITH ANY DOCUMENTATION UPDATES OR ADDITIONS AND CARRY THROUGH TO DC SUMMARY. THANK YOU. DATE: 08/13/2018 ATTN: Dr. Mcdaniel Please exercise your independent, professional judgment in responding to the clarification form. Clinical indicators are provided on the bottom of this form for your review Please check appropriate box(es): [ x ] Sepsis due to Pneumonia. [ x ] Sepsis due to UTI. [ ] Sepsis due to other: [ ] Other diagnosis [ ] Unable to determine In addition, please specify: Present on Admission (POA): [ x] Yes [ ] No [ ] Unable to determine For continuity of documentation, please document condition throughout progress notes and discharge summary. Thank You. CLINICAL INDICATORS - SIGNS / SYMPTOMS / LABS H&P 08/12: BP 92/62, Pulse 98, resp. 21. T-max 99.1 Acute metabolic encephalopathy. Pneumonia UTI 08/12 ([place]) Blood cultures growing coag-negative Staph in one out of two. Healthcare-associated pneumonia Sepsis without end-organ damage RISKS: H&P: PMH multiple sclerosis, HTN. DM 2, and depression. Presenting with acute metabolic encephalopathy, most likely 2/2 a combination of pneumonia and UTI. TREATMENT: MAR: Order 08/09: IV Zithromax 500mg MAR: Order 08/09: Meropenem 1 gm IV Thank you, Bernice (This form is maintained as a part of the permanent medical record) 2015 [employer]. All Rights Reserved Bernice Del Rosario RN, BSN [email or web address] Office: [phone] [facility]
[2018-08-14] MEDS: MEROPENEM 1 GM/50 ML 1 GM in Premix Bag 1 BAG IVPB SCH (05:04)
[2018-08-14] MEDS: Sodium Chloride 0.9% 1,000 ML IV SCH (05:06)
[2018-08-14 08:41] VITALS: BP 119/77; TEMP 97.7
[2018-08-14] MEDS: Docusate 100 MG CAP PO SCH (09:05)
[2018-08-14] MEDS: Enoxaparin Sodium 40 MG/0.4 ML SYRINGE SC SCH (09:06)
--- NOTE | 2018-08-14 12:26 | PDOC.PN ---
- Subjective Encounter Start Date: 08/14/18 Encounter Start Time: 08:40 Subjective: awake, converses minimally -: not in distress, ate her breakfast with assistance - Objective Resuscitation Status - Order Detail: 08/09/18 14:49 Resuscitation Status Routine Resuscitation Status: DNAR: NO Resuscitation Discussed with: SARAVANAN Reviewed: Yes Vital Signs & Weight: Vital Signs (12 hours) Temp Pulse Resp BP Pulse Ox 08/14/18 08:10 67 14 97 08/14/18 08:00 97.7 F 67 18 119/77 99 Weight Weight 144 lb 3.2 oz I&O: 08/13/18 08/14/18 08/15/18 06:59 06:59 06:59 Intake Total 1250 1140 120 Output Total 750 325 Balance 500 815 120 Result Diagrams: 08/10/18 04:29 08/10/18 04:29 Additional Labs: Accuchecks 08/14/18 08/14/18 08/13/18 10:52 05:39 20:58 POC Glucose 91 79 84 08/13/18 16:51 POC Glucose 77 Phys Exam - Physical Examination HEENT: PERRLA, moist MMs Neck: no JVD, supple Respiratory: no wheezing, no rales Cardiovascular: RRR, no significant murmur Gastrointestinal: soft, non-tender, positive bowel sounds Musculoskeletal: pulses present, edema present paraplegia Dx/Plan (1) UTI (urinary tract infection) Status: Acute Qualifiers: Urinary tract infection type: acute cystitis Hematuria presence: without hematuria Qualified Code(s): N30.00 - Acute cystitis without hematuria (2) Pneumonia Code(s): J18.9 - PNEUMONIA, UNSPECIFIED ORGANISM Status: Acute Qualifiers: Pneumonia type: due to unspecified organism Laterality: left Lung location: lower lobe of lung Qualified Code(s): J18.1 - Lobar pneumonia, unspecified organism (3) Metabolic encephalopathy Code(s): G93.41 - METABOLIC ENCEPHALOPATHY Status: Resolved (4) Hypertension Code(s): I10 - ESSENTIAL (PRIMARY) HYPERTENSION Status: Chronic Qualifiers: Hypertension type: essential hypertension Qualified Code(s): I10 - Essential (primary) hypertension (5) Multiple sclerosis Code(s): G35 - MULTIPLE SCLEROSIS Status: Chronic Comment: advanced - Plan hemostable -: may dc pt to [facility] under palliative care -: has had progressive decline in her physical condition -: poor prognosis, diet per speech adv * . Review of Systems - Medications/Allergies Allergies/Adverse Reactions: Allergies Allergy/AdvReac Type Severity Reaction Status Date / Time levofloxacin [From Levaquin] Allergy Verified 10/05/17 02:56 Sulfa (Sulfonamide Allergy Verified 10/05/17 02:56 Antibiotics) Medications: Current Medications Acetaminophen (Tylenol) 650 mg PO Q4H PRN PRN Reason: Headache/Fever/Mild Pain (1-3) Acetaminophen (Tylenol) 650 mg [place] Q4H PRN PRN Reason: Headache/Fever/Mild Pain (1-3) Albuterol/Ipratropium (Duoneb) 3 ml NEB [id number] [facility] Last Admin: 08/14/18 08:10 Dose: 3 ml Dextrose/Water (Dextrose 50%) 25 gm SLOW IVP PRN PRN PRN Reason: Hypoglycemia Docusate Sodium (Colace) 100 mg PO BID [facility] Last Admin: 08/14/18 09:05 Dose: 100 mg Enoxaparin Sodium (Lovenox) 40 mg SC 0900 [facility] Last Admin: 08/14/18 09:06 Dose: 40 mg Glucagon (Glucagon) 1 mg IM PRN PRN PRN Reason: Hypoglycemia Meropenem 1 gm/ Device 50 mls @ 100 mls/hr IVPB Q8HR [facility] Last Admin: 08/14/18 05:04 Dose: 50 mls Azithromycin 500 mg/ Sodium (Chloride) 250 mls @ 250 mls/hr IVPB Q24HR [facility] Last Admin: 08/13/18 15:29 Dose: 250 mls Sodium Chloride (Normal Saline 0.9%) 1,000 mls @ 50 mls/hr IV .Q20H [facility] Last Admin: 08/14/18 05:06 Dose: 1,000 mls Dextrose/Water (D5w) 1,000 mls @ 0 mls/hr IV .Q0M PRN PRN Reason: Hypoglycemia Insulin Human Lispro (Humalog) 0 units SC .MILD SLIDING SCALE PRN PRN Reason: Mild Correctional Scale Scopolamine (Transderm Scop) 1.5 mg TD Q3D [facility] Last Admin: 08/12/18 14:45 Dose: 1.5 mg
--- NOTE | 2018-08-14 14:12 | DIS ---
DATE OF ADMISSION: 08/09/2018 DATE OF DISCHARGE: 08/14/2018 DISCHARGE DISPOSITION: To [facility]. PRIMARY DISCHARGE DIAGNOSES: 1. Pneumonia. 2. Urinary tract infection. 3. Sepsis. 4. Metabolic encephalopathy. SECONDARY DISCHARGE DIAGNOSES: 1. Advanced multiple sclerosis with paraplegia and likely functional quadriparesis. 2. Hypertension. PROCEDURES DONE DURING HOSPITALIZATION: CT brain done showed extensive bilateral white matter disease. CT chest showed occlusion of the main basilar segment bronchus of the left lower lobe resulting in patchy left lower lobe airspace densities from the left hilum to the left base, which represents postobstructive pneumonitis. The patient had bronchoscopy done on 08/13/[address] Hickey. This showed pulmonary infiltrate, but no endobronchial lesions were seen. There was significant extensive inflammatory changes in the left upper lobe preventing advancing of the scope into the left upper lobe or lingula. Secretions were extraordinarily heavy and thick greenish yellow purulent material. Bronchial washings showed reactive bronchial respiratory epithelial cells and macrophages. No atypia or malignancy was noted. Blood cultures 1/2 grew coag-negative Staph likely contaminant. Urine culture grew 3 different organisms including E coli, Aerococcus urinae, and non-hemolytic Streptococcus. H and H of 11 and 35, platelet count 177. DISCHARGE MEDICATIONS: 1. Vantin 200 mg p.o. twice daily for 6 days. 2. Aspirin 81 mg p.o. daily. 3. Buspirone 5 mg p.o. daily. 4. Colace 100 mg p.o. twice daily. 5. Lexapro 10 mg daily. 6. Wheeler p.r.n. for pain. 7. Lidocaine transdermal patch daily. 8. Cozaar 25 mg p.o. daily. 9. MiraLAX 17 g daily. 10. DuoNeb q.6 hourly p.r.n. ALLERGIES: TO LEVAQUIN AND SULFA. INPATIENT CONSULT: Dr. Hickey for Pulmonology. DISCHARGE PLAN: The patient to follow up with Dr. Dorantes, her primary care physician in 1 week. BRIEF COURSE DURING HOSPITALIZATION: The patient initially was sent over from [facility] with complaints of cough and shortness of breath. Her initial CAT scan was suggestive of postobstructive pneumonia in the left lower lobe. The patient also had metabolic encephalopathy. She also had abnormal urinalysis and was essentially treated for both pneumonia and UTI with sepsis. The patient was on IV antibiotics, which has been transitioned to Vantin oral. The patient has advanced multiple sclerosis with paraplegia and likely functional quadriparesis as well. She needs assistance even for feeding. This has been progressive from last 4 years and she has become more deconditioned from last 4 months or so now. She has had consultation with Dr. Hickey. The patient has had bronchoscopy done, with no endobronchial lesions seen. There was significant inflammatory changes seen in the left upper lobe preventing advancing the bronchoscope in the left upper lobe/ lingula. She had heavy and thick greenish yellow purulent secretions during bronchoscopy. She has otherwise remained hemodynamically stable. Her encephalopathy is resolving. Her overall prognosis is poor with advanced and progressive multiple sclerosis. Her has agreed for palliative care to be continued at the halfway and they will decide with primary care physician whether to initiate hospice or not. A total of 35 minutes was spent on discharge plan. Please see a [id number] [facility] of discharge. Job ID: [id number] MTDD
[2018-08-15 09:14] LABS: Fungus Stain Final report (.)
== END 2018-08-14 17:05 | DRG 871 ==
LOC: ERS 10:29 → T4-A 17:50
PROVIDERS: ADMIT Internal Medicine; ATTEND Internal Medicine
PROC: 0BD98ZX Extraction of Lingula Bronchus, Via Natural or Artificial Opening Endoscopic, Diagnostic (ICD-10-PCS; principal; 2018-08-12)
PROC: 0BD88ZX Extraction of Left Upper Lobe Bronchus, Via Natural or Artificial Opening Endoscopic, Diagnostic (ICD-10-PCS; 2018-08-12)
PROC: 0B978ZZ Drainage of Left Main Bronchus, Via Natural or Artificial Opening Endoscopic (ICD-10-PCS; 2018-08-12)
DX: A41.9 Sepsis, unspecified organism (principal); G93.41 Metabolic encephalopathy; J18.1 Lobar pneumonia, unspecified organism; G82.50 Quadriplegia, unspecified; N17.9 Acute kidney failure, unspecified; N30.00 Acute cystitis without hematuria; Z51.5 Encounter for palliative care; G35 Multiple sclerosis; Z66 Do not resuscitate; I10 Essential (primary) hypertension; K21.9 Gastro-esophageal reflux disease without esophagitis; F41.9 Anxiety disorder, unspecified; F32.9 Major depressive disorder, single episode, unspecified; J98.09 Other diseases of bronchus, not elsewhere classified; B96.89 Other specified bacterial agents as the cause of diseases classified elsewhere; J32.9 Chronic sinusitis, unspecified; Z88.1 Allergy status to other antibiotic agents; Z88.2 Allergy status to sulfonamides; Z79.899 Other long term (current) drug therapy; Z79.82 Long term (current) use of aspirin; Z74.01 Bed confinement status
CPT/HCPCS: 36415; 36416; 51701; 70450; 71045; 71260; 80048; 80053; 81003; 81015; 83605; 85025; 85060; 87040; 87070; 87077; 87086; 87102; 87116; 87149; 87186; 87205; 87206; 88112; 88305; 89051; 93005; 94640; 96365; 96367; A4353; J0456; J0696; J1100; J1650; J2001; J2185; J2405; J2704; J3010; J3490; J7050; J7620; Q9966